=== PATIENT | female | born 1970 | race African-American/Black ===

== ENCOUNTER 2016-05-22 19:48 | Emergency (ER) | payer OTHER ==
[2016-05-22 19:59] VITALS: BP 117/45; PULSE 78; TEMP 98.1; BMI 28.3
--- NOTE | 2016-05-22 20:35 | PDOC ---
History of Present Illness - General Chief Complaint: Respiratory Stated Complaint: COUGH Time Seen by Provider: 05/22/16 20:33 History Source: Patient Past History - Past Medical History Allergies/Adverse Reactions: Allergies Allergy/AdvReac Type Severity Reaction Status Date / Time Penicillins Allergy Severe Hives Verified 05/22/16 19:56 egg Allergy Verified 05/22/16 19:56 latex Allergy Verified 05/22/16 19:56 dust Allergy Uncoded 05/22/16 19:56 Home Medications: Ambulatory Orders Albuterol Sulfate Inhaler - [Ventolin HFA Inhaler -] 1 - 2 inh PO Q4H #1 inhaler 10/01/14 Hydrocortisone/Oatmeal/Aloe/E [Hydrocortisone 1% Cream] 28.4 gm TP BID #1 cream..g. 05/03/15 Asthma: Yes - Immunization History Immunization Up to Date: Yes - Psycho/Social/Smoking Cessation Hx Anxiety: No Suicidal Ideation: No Smoking History: Current every day smoker Number of Cigarettes Smoked Daily: 5 Information on smoking cessation initiated: No Hx Alcohol Use: No Drug/Substance Use Hx: No Substance Use Type: None *Physical Exam - Vital Signs Last Vital Signs Temp Pulse Resp BP Pulse Ox 98.1 F 78 20 117/45 99 05/22/16 19:56 05/22/16 19:56 05/22/16 19:56 05/22/16 19:56 05/22/16 19:56 *DC/Admit/Observation/Transfer Diagnosis at time of Disposition: Viral infection - Discharge Dispostion Disposition: HOME Condition at time of disposition: Stable - Patient Instructions Printed Discharge Instructions: DI for Viral Syndrome Additional Instructions: Rest Increase fluids Tylenol/Motrin as needed for pain Return to the ER for severe/persistent/worsening symptoms
== END 2016-05-22 20:38 | disposition home or self-care (01) ==
LOC: JERFT 19:48
DX: B34.9 Viral infection, unspecified (principal); J45.909 Unspecified asthma, uncomplicated; F17.210 Nicotine dependence, cigarettes, uncomplicated
CPT/HCPCS: 99281-25

== ENCOUNTER 2016-06-26 09:24 | Emergency (ER) | payer OTHER ==
[2016-06-26 09:43] VITALS: BMI 28.0
[2016-06-26] MEDS ORDERED: KETOROLAC TROMETHAMINE 60 MG/2 ML VIAL IM ONE (09:58)
[2016-06-26] MEDS ORDERED: PANTOPRAZOLE 20 MG TABLET (FP) PO ONE (09:59)
[2016-06-26] MEDS ORDERED: diazePAM 5 MG TABLET PO ONE (09:59)
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
[2016-06-26] MEDS ORDERED: KETOROLAC TROMETHAMINE 60 MG/2 ML VIAL ONE (10:20)
[2016-06-26] MEDS ORDERED: PANTOPRAZOLE 40 MG TABLET (FP) ONE ×2 (10:20→10:23)
[2016-06-26] MEDS ORDERED: diazePAM 5 MG TABLET ONE (10:21)
[2016-06-26] MEDS ORDERED: OXYCODONE/APAP 5/325MG COMBO TABLET PO ONE (13:40)
[2016-06-26] MEDS ORDERED: OXYCODONE/APAP 5/325MG COMBO TABLET ONE (13:47)
[2016-06-26 16:39] VITALS: BP 104/58; PULSE 61; TEMP 97.7
== END 2016-06-26 16:26 | disposition home or self-care (01) ==
LOC: JER 09:24
PROC: 3E0233Z Introduction of Anti-inflammatory into Muscle, Percutaneous Approach (ICD-10-PCS; principal; 2016-06-26)
DX: M54.42 Lumbago with sciatica, left side (principal); V43.52XA Car driver injured in collision with other type car in traffic accident, initial encounter; Y92.414 Local residential or business street as the place of occurrence of the external cause; Y93.89 Activity, other specified
CPT/HCPCS: 72100-TC; 72131-TC; 84703; 99281-25

== ENCOUNTER 2016-08-04 18:51 | Emergency (ER) | payer OTHER ==
[2016-08-04 18:56] VITALS: BP 105/57; PULSE 58; TEMP 98.5; BMI 32.1
[2016-08-04 19:31] LABS: URINE APPEARANCE CLEAR; URINE BILIRUBIN NEGATIVE (NEGATIVE); URINE BLOOD NEGATIVE (NEGATIVE); URINE COLOR LTYELLOW; URINE GLUCOSE (UA) NEGATIVE (NEGATIVE); URINE KETONE NEGATIVE (NEGATIVE); URINE LEUK ESTERASE NEGATIVE (NEGATIVE); URINE NITRITE NEGATIVE (NEGATIVE); URINE PROTEIN NEGATIVE (NEGATIVE); URINE UROBILINOGEN NEGATIVE E.U./dl (0.2-1.0)
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
== END 2016-08-04 20:11 | disposition home or self-care (01) ==
LOC: JER 18:51
DX: J32.9 Chronic sinusitis, unspecified (principal); G43.909 Migraine, unspecified, not intractable, without status migrainosus; F17.210 Nicotine dependence, cigarettes, uncomplicated
CPT/HCPCS: 81003; 84703; 99281-25

== ENCOUNTER 2016-10-06 11:49 | Inpatient (IN) | payer OTHER ==
[2016-10-06] MEDS ORDERED: MAGNESIUM SULF 50% (8.12 MEQ/2 ML-1 GM VIAL) IVPB ONE (12:07)
[2016-10-06] MEDS ORDERED: methylPREDNISolone NA SUCC 125 MG/2 ML VIAL IVPB ONE (12:07)
[2016-10-06] MEDS ORDERED: ALBUTEROL SO4 2.5/IPRATROPIUM 0.5 INH SOL 3 ML VIAL.NEB. NEB ONE (12:07)
[2016-10-06] MEDS ORDERED: SODIUM CHLORIDE 1,000 ML IV STA ×2 (12:07→14:35)
--- NOTE | 2016-10-06 12:07 | PDOC ---
History of Present Illness - General History Source: Significant Other Exam Limitations: No Limitations - History of Present Illness Initial Comments: 10/06/16 12:09 This is a 46-year-old female, with a history of asthma and migraines, who presents to the ED with shortness of breath that began this morning. Pts states that she had told him that her chest felt and she was going to pass out. Her symptoms are similar to her prior episodes of asthma. She also reports having seasonal allergies. The patient denies any fever, chills, nausea, vomiting, diarrhea, or abdominal pain. Denies any chest pain. <Emily Gregory - Last Filed: 10/06/16 14:37> <Xi Hyde - Last Filed: 10/07/16 09:41> - General Chief Complaint: Shortness of Breath Stated Complaint: SOB, WHEEZING Time Seen by Provider: 10/06/16 12:02 Past History <Emily Gregory - Last Filed: 10/06/16 14:37> - Past Medical History Asthma: Yes - Immunization History Immunization Up to Date: Yes - Psycho/Social/Smoking Cessation Hx Anxiety: No Suicidal Ideation: No Smoking History: Current some day smoker Number of Cigarettes Smoked Daily: 2 Information on smoking cessation initiated: No Hx Alcohol Use: No Drug/Substance Use Hx: No Substance Use Type: None <Xi Hyde - Last Filed: 10/07/16 09:41> - Past Medical History Allergies/Adverse Reactions: Allergies Allergy/AdvReac Type Severity Reaction Status Date / Time Penicillins Allergy Severe Hives Verified 10/06/16 11:59 egg Allergy Verified 10/06/16 11:59 latex Allergy Verified 10/06/16 11:59 dust Allergy Uncoded 10/06/16 11:59 Home Medications: Ambulatory Orders Albuterol Sulfate Inhaler - [Ventolin HFA Inhaler -] 1 - 2 inh PO Q4H #1 inhaler 10/01/14 Review of Systems - Review of Systems Able to Perform ROS?: Yes Comments:: 10/06/16 12:10 GENERAL/CONSTITUTIONAL: No fever or chills. No weakness. HEAD, EYES, EARS, NOSE AND THROAT: No change in vision. No ear pain or discharge. No sore throat. CARDIOVASCULAR: No chest pain. (+)Shortness of breath, wheezing, chest tightness. RESPIRATORY: No cough, wheezing, or hemoptysis. GASTROINTESTINAL: No nausea, vomiting, diarrhea or constipation. GENITOURINARY: No dysuria, frequency, or change in urination. MUSCULOSKELETAL: No joint or muscle swelling or pain. No neck or back pain. SKIN: No rash NEUROLOGIC: No headache, vertigo, loss of consciousness, or change in strength/ sensation. ENDOCRINE: No increased thirst. No abnormal weight change. HEMATOLOGIC/LYMPHATIC: No anemia, easy bleeding, or history of blood clots. ALLERGIC/IMMUNOLOGIC: No hives or skin allergy. <Emily Gregory - Last Filed: 10/06/16 14:37> *Physical Exam - Vital Signs Last Vital Signs Temp Pulse Resp BP Pulse Ox 98.4 F 97 H 18 133/69 92 L 10/06/16 11:55 10/06/16 11:55 10/06/16 11:55 10/06/16 11:55 10/06/16 11:55 <Emily Gregory - Last Filed: 10/06/16 14:37> - Vital Signs Last Vital Signs Temp Pulse Resp BP Pulse Ox 98.4 F 97 H 18 133/69 92 L 10/06/16 11:55 10/06/16 11:55 10/06/16 11:55 10/06/16 11:55 10/06/16 11:55 <Xi Hyde - Last Filed: 10/07/16 09:41> ED Treatment Course - LABORATORY CBC & Chemistry Diagram: 10/06/16 12:13 10/06/16 12:13 <Emily Gregory - Last Filed: 10/06/16 14:37> - LABORATORY CBC & Chemistry Diagram: 10/07/16 06:10 10/06/16 12:13 <Xi yHde - Last Filed: 10/07/16 09:41> Medical Decision Making - Medical Decision Making 10/06/16 14:17 Dr. Gualberto Junior was paged and notified via phone service. 10/06/16 14:37 Dr. Diaz was paged and notified via phone service. <Emily Gregory - Last Filed: 10/06/16 14:37> - Critical Care Time Total Critical Care Time (minutes): 45 Critical Care Statement: The care of this patient involved high complexity decision making to prevent further life threatening deterioration of the patient 's condition and/or to evalute & treat vital organ system(s) failure or risk of failure. - Medical Decision Making 10/06/16 14:32 Patient much better on BiPAP. She was unable to speak on initial evaluation. She is now able to speak full sentences without difficulty. she states that she takes B-agonists, but not on any chronic steroids, either parenteral or inhaled. She has been admitted to ICU in the past. She typically gets exacerbations related to her seasonal allergies. Will admit to Dr. Gualberto Junior. 10/06/16 15:[address] Junior. Patient got out of bed to commode to urinate, then started to feel worse, developed SOB again. Will resume more nebs and give terbutaline. I will upgrade to ICU. 10/06/16 15:59 Pt desatting to 88%. Respiratory at bedside, increased FIO2 to 30%. Patient still with increased work of breathing. Will give epinephrine and cont to monitor. 10/06/16 16:34 Pt significantly improved s/p epinephrine. She is satting 100% on the BiPAP. will cont to monitor. 10/06/16 17:01 I was at bedside to assist patient to commode. With minimal exertion (turning onto her side, moving) she desats to 88. Concerned that there may be another underlying process aside from the asthma exacerbation. D/w patient and at bedside- will obtain CTA to r/o PE. Endorsed to Dr. Thomas to f/u CTA. Pt still awaiting bed in ICU. <Xi Hyde - Last Filed: 10/07/16 09:41> *DC/Admit/Observation/Transfer - Attestations Scribe Attestion: 10/06/16 12:11 Documentation prepared by Emily Gregory, acting as medical center manager for Xi Hyde MD. <Emily Gregory - Last Filed: 10/06/16 14:37> - Discharge Dispostion Admit: Yes <Xi Hyde - Last Filed: 10/07/16 09:41> Diagnosis at time of Disposition: Asthma Qualifiers: Asthma severity: unspecified severity Asthma complication type: with acute exacerbation Qualified Code(s): J45.901 - Unspecified asthma with (acute) exacerbation - Discharge Dispostion Condition at time of disposition: Guarded
[2016-10-06] MEDS ORDERED: methylPREDNISolone NA SUCC 125 MG/2 ML VIAL ONE (12:11)
[2016-10-06] MEDS ORDERED: MAGNESIUM SULF 50% (8.12 MEQ/2 ML-1 GM VIAL) ONE (12:11)
[2016-10-06] MEDS: ALBUTEROL SO4 2.5/IPRATROPIUM 0.5 INH SOL 3 ML VIAL.NEB. NEB SCH ×3 (12:17→12:46)
[2016-10-06 12:26] LABS: BASOPHIL 0.3 % (0-2.0); MCH 30.6 pg (25.7-33.7); MCHC 33.4 g/dl (32.0-36.0); MEAN CELL VOLUME 91.5 fl (80-96); MEAN PLT VOLUME 7.8 fl (7.5-11.1); NEUTROPHILS 68.5 % (42.8-82.8); PLATELET COUNT 255 K/MM3 (134-434); RDW 13.4 % (11.6-15.6); WHITE BLOOD COUNT 7.6 K/mm3 (4.0-10.0)
[2016-10-06] MEDS ORDERED: ALBUTEROL SO4 0.083% IH SOL 2.5 MG/3 ML VIAL.NEB. NEB ONE ×5 (12:52→22:47)
[2016-10-06 13:12] LABS: ALBUMIN 3.4 g/dl (3.4-5.0); ALK PHOS 93 U/L (45-117); ANION GAP 9 (8-16); BILIRUBIN,TOTAL 0.3 mg/dL (0.2-1.0); CALCIUM 8.9 mg/dL (8.5-10.1); CO2 25 mmol/L (21-32); COCKROFT - GAULT 100.6655; CREATININE 0.8 mg/dL (0.55-1.02); GLUCOSE,RANDOM 111 mg/dL (74-106); SGOT/AST 15 U/L (15-37); SGPT/ALT 15 U/L (12-78)
[2016-10-06] MEDS ORDERED: TERBUTALINE SULFATE 1 MG/1 ML VIAL SQ ONE ×2 (15:15→15:17)
[2016-10-06] MEDS ORDERED: EPINEPHrine 1:1,000 0.3 MG/0.3 ML SYR IM ONE (15:59)
[2016-10-06] MEDS ORDERED: EPINEPHrine/PF 1 MG/1 ML (1:1,000) AMPULE ONE (16:00)
[2016-10-06] MEDS: ALBUTEROL SO4 0.083% IH SOL 2.5 MG/3 ML VIAL.NEB. NEB SCH ×4 (16:05→18:14)
[2016-10-06] MEDS ORDERED: ACETAMINOPHEN 325 MG TABLET (FP) PO PRN (16:35)
[2016-10-06 17:38] LABS: ALLENS TEST POSITIVE; ART PUNCT SITE RIGHT RADIAL; ARTERIAL BLD GAS O2 SATURATION 89.4 % (90-98.9); ARTERIAL BLOOD GAS BASE EXCESS -3.9 meq/l (-2-2); ARTERIAL BLOOD GAS HCO3 20.3 meq/L (22-26); ARTERIAL BLOOD GAS pH 7.37 (7.35-7.45); LPM/O2% 30%; PT. ON O2? YES
[2016-10-06 17:39] LABS: TYPE OF O2 BIPAP IPAP10 EPAP 5; VENT RATE 8
[2016-10-06 17:40] LABS: ARTERIAL BLOOD GAS PO2 60.3 mmHg (80-100)
[2016-10-06] MEDS ORDERED: AZITHROMYCIN IVPB 250 ML IVPB ONE (17:41)
[2016-10-06] MEDS: AZITHROMYCIN IVPB 250 ML IVPB SCH (17:46)
[2016-10-06 19:12] VITALS: BMI 27.4
[2016-10-06] MEDS ORDERED: LEVOFLOXACIN 750 MG IVPB 150 ML IVPB ONE ×2 (19:28→19:32)
[2016-10-06] MEDS: methylPREDNISolone NA SUCC 40 MG/1 ML VIAL IVPB SCH (20:22)
[2016-10-06] MEDS: ALBUTEROL SO4 0.083% IH SOL 2.5 MG/3 ML VIAL.NEB. NEB PRN (20:22)
[2016-10-06] MEDS ORDERED: CHLORHEXIDINE GLUCONATE 4% CLEANSER FOR DECOLONIZATION TP SCH (22:00)
[2016-10-06] MEDS ORDERED: MUPIROCIN 2% TOPICAL OINTMENT FOR DECOLONIZATION NS SCH (22:00)
[2016-10-06] MEDS ORDERED: ACETAMINOPHEN INJECTION 100 ML IVPB ONE (22:37)
[2016-10-06] MEDS: ACETAMINOPHEN 1000 MG/100 ML VIAL (NON FORMULARY) IVPB PRN (23:40)
[2016-10-07] MEDS: ALBUTEROL SO4 0.083% IH SOL 2.5 MG/3 ML VIAL.NEB. NEB PRN ×3 (01:45→15:51)
[2016-10-07] MEDS: methylPREDNISolone NA SUCC 40 MG/1 ML VIAL IVPB SCH ×4 (03:01→21:23)
[2016-10-07] MEDS ORDERED: methylPREDNISolone NA SUCC 125 MG/2 ML VIAL ONE ×3 (03:05→16:43)
[2016-10-07 07:15] LABS: BASOPHIL 0.1 % (0-2.0); MCH 30.8 pg (25.7-33.7); MCHC 33.5 g/dl (32.0-36.0); MEAN PLT VOLUME 8.3 fl (7.5-11.1); NEUTROPHILS 92.4 % (42.8-82.8); PLATELET COUNT 261 K/MM3 (134-434); WHITE BLOOD COUNT 15.8 K/mm3 (4.0-10.0)
[2016-10-07] MEDS ORDERED: ALBUTEROL SO4 0.083% IH SOL 2.5 MG/3 ML VIAL.NEB. NEB ONE ×2 (09:49→15:49)
[2016-10-07] MEDS ORDERED: PANTOPRAZOLE 40 MG TABLET (FP) ONE (09:49)
[2016-10-07] MEDS ORDERED: ENOXAPARIN NA (PORCINE) 40 MG/0.4 ML DISP.SYRIN SQ ONE ×2 (09:50)
[2016-10-07] MEDS ORDERED: AZITHROMYCIN IVPB 250 ML IVPB ONE (09:50)
[2016-10-07] MEDS: AZITHROMYCIN IVPB 250 ML IVPB SCH (09:53)
[2016-10-07] MEDS: ENOXAPARIN NA (PORCINE) 40 MG/0.4 ML DISP.SYRIN SQ SCH (09:54)
[2016-10-07] MEDS: PANTOPRAZOLE 20 MG TABLET (FP) PO SCH (09:54)
--- NOTE | 2016-10-07 10:46 | HP ---
Admitting History and Physical - Primary Care Physician PCP: Zachary Walden - Admission Chief Complaint: sob History of Present Illness: This is a 46-year-old female, with a history of asthma and migraines, who presents to the ED with shortness of breath that began this morning. Pts states that she had told him that her chest felt and she was going to pass out. Her symptoms are similar to her prior episodes of asthma. She also reports having seasonal allergies. The patient denies any fever, chills, nausea, vomiting, diarrhea, or abdominal pain. Denies any chest pain. pt got worsened in er-- admitted under icu care for impending respiratory failure ct =ve for PE PT GIVEN STEROIDS/ EPI/ MAG Case was discussed with er puysician last night Pt seen/ examined in er today feel better complains of back pain-- chronic for few months off and on on further questioning admits smokes-- 3-4 cig/ day no fever/ chills no u/ b trouble no headche/ dizziness no abd pain History Source: Patient Limitations to Obtaining History: No Limitations - Past Medical History Pulmonary: Yes: Asthma, Bronchitis ...LMP Comment: MENOPAUSAL SINCE "AGE 27" ...: No - Smoking History Smoking history: Current some day smoker Aproximately how many cigarettes per day: 2 - Alcohol/Substance Use Hx Alcohol Use: No Home Medications - Allergies Allergies/Adverse Reactions: Allergies Allergy/AdvReac Type Severity Reaction Status Date / Time Penicillins Allergy Severe Hives Verified 10/06/16 11:59 egg Allergy Verified 10/06/16 11:59 latex Allergy Verified 10/06/16 11:59 dust Allergy Uncoded 10/06/16 11:59 - Home Medications Home Medications: Ambulatory Orders Albuterol Sulfate Inhaler - [Ventolin HFA Inhaler -] 1 - 2 inh PO Q4H #1 inhaler 10/01/14 Family Disease History - Family Disease History Family History: Unremarkable Review of Systems Unable to obtain ROS, reason: see [place] - Review of Systems Constitutional: reports: No Symptoms Eyes: reports: No Symptoms HENT: reports: No Symptoms Neck: reports: No Symptoms Cardiovascular: reports: No Symptoms Respiratory: reports: SOB Gastrointestinal: reports: No Symptoms Genitourinary: reports: No Symptoms Musculoskeletal: reports: Back Pain Neurological: reports: No Symptoms Endocrine: reports: No Symptoms Hematology/Lymphatic: reports: No Symptoms Psychiatric: reports: No Symptoms Physical Examination Vital Signs: Vital Signs Temperature 98.2 F 10/07/16 09:32 Pulse Rate 90 10/07/16 09:32 Respiratory Rate 18 10/07/16 09:32 Blood Pressure 124/72 10/07/16 09:32 O2 Sat by Pulse Oximetry (%) 99 10/07/16 09:32 Constitutional: Yes: No Distress, Calm Eyes: Yes: Conjunctiva Clear HENT: Yes: WNL Neck: Yes: Tenderness Cardiovascular: Yes: Regular Rate and Rhythm Respiratory: Yes: Wheezes Gastrointestinal: Yes: Soft Edema: No Labs: CBC, BMP 10/07/16 06:10 Imaging - Results Chest X-ray: Report Reviewed Cat Scan: Report Reviewed Problem List - Problems (1) Asthma Code(s): J45.909 - UNSPECIFIED ASTHMA, UNCOMPLICATED Qualifiers: Asthma severity: unspecified severity Asthma complication type: with acute exacerbation Qualified Code(s): J45.901 - Unspecified asthma with ( acute) exacerbation (2) Smoker Code(s): F17.200 - NICOTINE DEPENDENCE, UNSPECIFIED, UNCOMPLICATED Assessment/Plan better downgrade to floor steroids abx nebulizer treatment nsaid for pain smoking cessation counselling. discussed with icu attending will follow discussed with nursing staff also cc time 40 min
[2016-10-07] MEDS: NICOTINE 7 MG/24 HOURS TOPICAL PATCH TD SCH (11:43)
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
[2016-10-07] MEDS ORDERED: ACETAMINOPHEN INJECTION 100 ML IVPB ONE (15:43)
[2016-10-07] MEDS: ACETAMINOPHEN 1000 MG/100 ML VIAL (NON FORMULARY) IVPB PRN (15:52)
[2016-10-07] MEDS: FLUTICASONE PROP 0.05% 16 GM NASAL SPRAY NS SCH (16:42)
[2016-10-07] MEDS: ALBUTEROL SO4 2.5/IPRATROPIUM 0.5 INH SOL 3 ML VIAL.NEB. NEB SCH ×2 (19:23→23:42)
[2016-10-07] MEDS: MONTELUKAST NA 10 MG TABLET PO SCH (21:23)
[2016-10-08] MEDS: methylPREDNISolone NA SUCC 40 MG/1 ML VIAL IVPB SCH ×4 (02:50→21:51)
[2016-10-08] MEDS: ALBUTEROL SO4 2.5/IPRATROPIUM 0.5 INH SOL 3 ML VIAL.NEB. NEB SCH ×3 (06:37→18:15)
[2016-10-08] MEDS ORDERED: PT OWN MED DRAWER 7, Y5N ONE (09:06)
[2016-10-08] MEDS: NICOTINE 7 MG/24 HOURS TOPICAL PATCH TD SCH (09:12)
[2016-10-08] MEDS: PANTOPRAZOLE 20 MG TABLET (FP) PO SCH (09:12)
[2016-10-08] MEDS: ENOXAPARIN NA (PORCINE) 40 MG/0.4 ML DISP.SYRIN SQ SCH (09:13)
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
--- NOTE | 2016-10-08 10:00 | EKG ---
Test Reason : Blood Pressure : / mmHG Vent. Rate : 114 BPM Atrial Rate : 114 BPM P-R Int : 166 ms QRS Dur : 076 ms QT Int : 346 ms P-R-T Axes : 070 072 036 degrees QTc Int : 476 ms SINUS TACHYCARDIA ABNORMAL ECG WHEN COMPARED WITH ECG OF 03-MAY-2015 22:05, VENT. RATE HAS INCREASED BY 53 BPM NONSPECIFIC T WAVE ABNORMALITY IS NOW PRESENT Confirmed by JOSE DONALD, JAYCOB ([id number]) on 10/08/2016 9:59:50 AM Referred By: Confirmed By:JAYCOB GARCIA MD
[2016-10-08] MEDS: AZITHROMYCIN IVPB 250 ML IVPB SCH (10:23)
--- NOTE | 2016-10-08 14:19 | PN ---
Progress Note (short form) - Note Progress Note: pt seen/ examined. siter at bedside feels better pulmonary f/u noted Vital Signs Temp 97.3 F L 10/08/16 09:00 Pulse 88 10/08/16 09:00 Resp 20 10/08/16 09:00 BP 119/66 10/08/16 09:00 Pulse Ox 99 10/07/16 21:00 Intake & Output 10/07/16 10/08/16 10/08/16 23:59 11:59 23:59 Intake Total 50 50 Balance 50 50 Intake: IVPB 50 50 Other: Voiding Method Toilet Toilet # Unmeasured Voids Void 1 1 Active Medications Acetaminophen (Tylenol -) 650 mg PO Q4H PRN PRN Reason: FEVER OR PAIN Acetaminophen (Ofirmev Injection -) 1,000 mg IVPB Q8H PRN PRN Reason: BACK PAIN Last Admin: 10/07/16 15:52 Dose: 1,000 mg Albuterol Sulfate (Ventolin 0.083% Nebulizer Soln -) 1 amp NEB Q4H PRN PRN Reason: SHORT OF BREATH/WHEEZING Last Admin: 10/07/16 15:51 Dose: 1 amp Albuterol/Ipratropium (Duoneb -) 1 amp NEB QIDR [facility] Last Admin: 10/08/16 11:30 Dose: 1 amp Chlorhexidine Gluconate (Hibiclens For Decolonization -) 1 applic TP [facility] Enoxaparin Sodium (Lovenox -) 40 mg SQ DAILY [facility] Last Admin: 10/08/16 09:13 Dose: 40 mg Fluticasone Propionate (Flonase -) 2 spray NS DAILY [facility] Last Admin: 10/07/16 16:42 Dose: Not Given Azithromycin (Zithromax 500mg Ivpb (Pre-Docked)) 250 mls @ 250 mls/hr IVPB DAILY [facility] Last Admin: 10/08/16 10:23 Dose: 250 mls/hr Methylprednisolone Sodium Succinate (Solu-Medrol -) 60 mg IVPB Q6H-IV [facility] Last Admin: 10/08/16 09:12 Dose: 60 mg Montelukast Sodium (Singulair -) 10 mg PO [facility] Last Admin: 10/07/16 21:23 Dose: 10 mg Mupirocin (Bactroban Ointment (For Decolonization) -) 1 applic NS BID [facility] Stop: 10/11/16 21:59 Nicotine (Nicoderm Patch -) 7 mg TD DAILY [facility] Last Admin: 10/08/16 09:12 Dose: 7 mg Pantoprazole Sodium (Protonix -) 20 mg PO DAILY [facility] Last Admin: 10/08/16 09:12 Dose: 20 mg CBC, BMP 10/07/16 06:10 10/06/16 12:13 Physical Examination Constitutional: Yes: No Distress, Calm Eyes: Yes: Conjunctiva Clear HENT: Yes: WNL Neck: Yes: Tenderness Cardiovascular: Yes: Regular Rate and Rhythm Respiratory: Yes: Wheezes-- decreased Gastrointestinal: Yes: Soft Edema: No Imaging - Results Chest X-ray: Report Reviewed Cat Scan: Report Reviewed Problem List - Problems (1) Asthma Code(s): J45.909 - UNSPECIFIED ASTHMA, UNCOMPLICATED Qualifiers: Asthma severity: unspecified severity Asthma complication type: with acute exacerbation Qualified Code(s): J45.901 - Unspecified asthma with ( acute) exacerbation (2) Smoker Code(s): F17.200 - NICOTINE DEPENDENCE, UNSPECIFIED, UNCOMPLICATED Assessment/Plan better steroids-- taper slowly abx nebulizer treatment nsaid for pain smoking cessation counselling provided will follow discussed with nursing staff also Problem List - Problems (1) Asthma Code(s): J45.909 - UNSPECIFIED ASTHMA, UNCOMPLICATED Qualifiers: Asthma severity: unspecified severity Asthma complication type: with acute exacerbation Qualified Code(s): J45.901 - Unspecified asthma with ( acute) exacerbation (2) Smoker Code(s): F17.200 - NICOTINE DEPENDENCE, UNSPECIFIED, UNCOMPLICATED
[2016-10-08] MEDS ORDERED: POTASSIUM CHLORIDE TABS 20 MEQ TABLET.ER (FP) PO ONE (14:46)
[2016-10-08] MEDS: FLUTICASONE PROP 0.05% 16 GM NASAL SPRAY NS SCH (15:00)
[2016-10-08] MEDS: MONTELUKAST NA 10 MG TABLET PO SCH (21:51)
[2016-10-09] MEDS: ALBUTEROL SO4 2.5/IPRATROPIUM 0.5 INH SOL 3 ML VIAL.NEB. NEB SCH ×5 (06:15→22:02)
[2016-10-09] MEDS: methylPREDNISolone NA SUCC 40 MG/1 ML VIAL IVPB SCH ×3 (07:44→17:07)
[2016-10-09] MEDS ORDERED: PT OWN MED DRAWER 7, Y5N ONE (09:02)
[2016-10-09] MEDS: ENOXAPARIN NA (PORCINE) 40 MG/0.4 ML DISP.SYRIN SQ SCH (09:21)
[2016-10-09] MEDS: NICOTINE 7 MG/24 HOURS TOPICAL PATCH TD SCH (09:21)
[2016-10-09] MEDS: PANTOPRAZOLE 20 MG TABLET (FP) PO SCH (09:22)
[2016-10-09] MEDS: FLUTICASONE PROP 0.05% 16 GM NASAL SPRAY NS SCH (09:22)
--- NOTE | 2016-10-09 10:26 | PN ---
Progress Note, Physician Chief Complaint: events noted admitted for asthma exacerbation on solumedrol feels tight - Current Medication List Current Medications: Active Medications Acetaminophen (Tylenol -) 650 mg PO Q4H PRN PRN Reason: FEVER OR PAIN Acetaminophen (Ofirmev Injection -) 1,000 mg IVPB Q8H PRN PRN Reason: BACK PAIN Last Admin: 10/07/16 15:52 Dose: 1,000 mg Albuterol Sulfate (Ventolin 0.083% Nebulizer Soln -) 1 amp NEB Q4H PRN PRN Reason: SHORT OF BREATH/WHEEZING Last Admin: 10/07/16 15:51 Dose: 1 amp Albuterol/Ipratropium (Duoneb -) 1 amp NEB QIDR [facility] Last Admin: 10/09/16 06:15 Dose: 1 amp Enoxaparin Sodium (Lovenox -) 40 mg SQ DAILY [facility] Last Admin: 10/09/16 09:21 Dose: 40 mg Fluticasone Propionate (Flonase -) 2 spray NS DAILY [facility] Last Admin: 10/09/16 09:22 Dose: 2 sprays Azithromycin (Zithromax 500mg Ivpb (Pre-Docked)) 250 mls @ 250 mls/hr IVPB DAILY [facility] Last Admin: 10/08/16 10:23 Dose: 250 mls/hr Methylprednisolone Sodium Succinate (Solu-Medrol -) 60 mg IVPB Q6H-IV [facility] Last Admin: 10/09/16 09:21 Dose: 60 mg Montelukast Sodium (Singulair -) 10 mg PO HS [facility] Last Admin: 10/08/16 21:51 Dose: 10 mg Nicotine (Nicoderm Patch -) 7 mg TD DAILY [facility] Last Admin: 10/09/16 09:21 Dose: 7 mg Pantoprazole Sodium (Protonix -) 20 mg PO DAILY [facility] Last Admin: 10/09/16 09:22 Dose: 20 mg - Objective Vital Signs: Vital Signs Temperature 97.4 F L 10/09/16 06:32 Pulse Rate 59 L 10/09/16 06:32 Respiratory Rate 20 10/09/16 06:32 Blood Pressure 132/78 10/09/16 06:32 O2 Sat by Pulse Oximetry (%) 99 10/07/16 21:00 Constitutional: Yes: No Distress Cardiovascular: Yes: Regular Rate and Rhythm Respiratory: Yes: Rhonchi Gastrointestinal: Yes: Normal Bowel Sounds, Soft. No: Distention, Tenderness Edema: No Psychiatric: Yes: Alert, Oriented Labs: CBC, BMP 10/07/16 06:10 Problem List - Problems (1) Asthma Code(s): J45.909 - UNSPECIFIED ASTHMA, UNCOMPLICATED Qualifiers: Asthma severity: unspecified severity Asthma complication type: with acute exacerbation Qualified Code(s): J45.901 - Unspecified asthma with ( acute) exacerbation (2) Smoker Code(s): F17.200 - NICOTINE DEPENDENCE, UNSPECIFIED, UNCOMPLICATED (3) Pneumonia Code(s): J18.9 - PNEUMONIA, UNSPECIFIED ORGANISM Qualifiers: Laterality: left Lung location: lower lobe of lung Assessment/Plan PLAN On Solumedrol-keep at current dose nebs scheduled Tylenol as needed for pain nebs and antibiotics pt will need to repeat CT chest in 2 months for left lobe opacity continue with meds OOB smoking cessation -- Nicotine patch DVT prophylaxis-- Lovenox
[2016-10-09] MEDS: AZITHROMYCIN IVPB 250 ML IVPB SCH (10:58)
[2016-10-09] MEDS ORDERED: guaiFENesin/CODEINE 10 ML UNIT-DOSE CUPS PO PRN (11:58)
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
[2016-10-09] MEDS ORDERED: LEVOFLOXACIN 500 MG TABLET (FP) PO SCH (12:30)
[2016-10-09] MEDS: MONTELUKAST NA 10 MG TABLET PO SCH (21:28)
[2016-10-10] MEDS: methylPREDNISolone NA SUCC 40 MG/1 ML VIAL IVPB SCH ×3 (02:24→18:15)
[2016-10-10] MEDS: LEVOFLOXACIN 500 MG TABLET (FP) PO SCH (05:58)
[2016-10-10] MEDS: ALBUTEROL SO4 2.5/IPRATROPIUM 0.5 INH SOL 3 ML VIAL.NEB. NEB SCH ×4 (06:00→22:35)
[2016-10-10 07:17] LABS: BASOPHIL 0.3 % (0-2.0); EOSINOPHIL 0.1 % (0-4.5); MCH 30.9 pg (25.7-33.7); MCHC 33.4 g/dl (32.0-36.0); MEAN CELL VOLUME 92.6 fl (80-96); MEAN PLT VOLUME 8.7 fl (7.5-11.1); NEUTROPHILS 87.2 % (42.8-82.8); PLATELET COUNT 218 K/MM3 (134-434); RDW 13.5 % (11.6-15.6); WHITE BLOOD COUNT 11.7 K/mm3 (4.0-10.0)
[2016-10-10 07:46] LABS: ALBUMIN 2.9 g/dl (3.4-5.0); ANION GAP 10 (8-16); BILIRUBIN,TOTAL 0.4 mg/dL (0.2-1.0); CALCIUM 8.9 mg/dL (8.5-10.1); CO2 28 mmol/L (21-32); COCKROFT - GAULT 89.4795; CREATININE 0.9 mg/dL (0.55-1.02); GLUCOSE,RANDOM 141 mg/dL (74-106); SGOT/AST 12 U/L (15-37); SGPT/ALT 17 U/L (12-78); TOT PROT 6.6 g/dl (6.4-8.2)
[2016-10-10 07:47] LABS: ALK PHOS 69 U/L (45-117)
--- NOTE | 2016-10-10 09:57 | PN ---
Progress Note, Physician Chief Complaint: Feels better No chest tightness Decreased SOB does not use o2 now - Current Medication List Current Medications: Active Medications Acetaminophen (Tylenol -) 650 mg PO Q4H PRN PRN Reason: FEVER OR PAIN Acetaminophen (Ofirmev Injection -) 1,000 mg IVPB Q8H PRN PRN Reason: BACK PAIN Last Admin: 10/07/16 15:52 Dose: 1,000 mg Albuterol/Ipratropium (Duoneb -) 1 amp NEB Q4HWA [facility] Last Admin: 10/10/16 06:00 Dose: 1 amp Enoxaparin Sodium (Lovenox -) 40 mg SQ DAILY [facility] Last Admin: 10/09/16 09:21 Dose: 40 mg Fluticasone Propionate (Flonase -) 2 spray NS DAILY [facility] Last Admin: 10/09/16 09:22 Dose: 2 sprays Guaifenesin/Codeine Phosphate (Robitussin Ac -) 10 ml PO Q8H PRN PRN Reason: COUGH Last Admin: 10/09/16 12:47 Dose: 10 ml Levofloxacin (Levaquin -) 500 mg PO DAILY@0600 [facility] Last Admin: 10/10/16 05:58 Dose: 500 mg Methylprednisolone Sodium Succinate (Solu-Medrol -) 60 mg IVPB Q8H-IV [facility] Last Admin: 10/10/16 02:24 Dose: 60 mg Montelukast Sodium (Singulair -) 10 mg PO HS [facility] Last Admin: 10/09/16 21:28 Dose: 10 mg Nicotine (Nicoderm Patch -) 7 mg TD DAILY [facility] Last Admin: 10/09/16 09:21 Dose: 7 mg Pantoprazole Sodium (Protonix -) 20 mg PO DAILY [facility] Last Admin: 10/09/16 09:22 Dose: 20 mg - Objective Vital Signs: Vital Signs Temperature 98.4 F 10/10/16 06:34 Pulse Rate 62 10/10/16 06:34 Respiratory Rate 20 10/10/16 06:34 Blood Pressure 135/77 10/10/16 06:34 O2 Sat by Pulse Oximetry (%) 96 10/09/16 21:00 Constitutional: Yes: No Distress, Calm Cardiovascular: Yes: Regular Rate and Rhythm Respiratory: Yes: Diminished, Rhonchi (decreased) Gastrointestinal: Yes: Normal Bowel Sounds, Soft, Abdomen, Obese. No: Distention, Tenderness Edema: No Psychiatric: Yes: Alert, Oriented Labs: CBC, BMP 10/10/16 06:30 10/10/16 06:30 Problem List - Problems (1) Asthma Code(s): J45.909 - UNSPECIFIED ASTHMA, UNCOMPLICATED Qualifiers: Asthma severity: unspecified severity Asthma complication type: with acute exacerbation Qualified Code(s): J45.901 - Unspecified asthma with ( acute) exacerbation (2) Smoker Code(s): F17.200 - NICOTINE DEPENDENCE, UNSPECIFIED, UNCOMPLICATED (3) Pneumonia Code(s): J18.9 - PNEUMONIA, UNSPECIFIED ORGANISM Qualifiers: Laterality: left Lung location: lower lobe of lung Assessment/Plan PLAN On Solumedrol-taper nebs scheduled Tylenol as needed for pain nebs and antibiotics pt will need to repeat CT chest in 2 months for left lobe opacity continue with meds incentive spirometry Peak flow measurement OOB smoking cessation -- Nicotine patch DVT prophylaxis-- Lovenox possible dc on Saturday
[2016-10-10] MEDS: PANTOPRAZOLE 20 MG TABLET (FP) PO SCH (10:01)
[2016-10-10] MEDS: NICOTINE 7 MG/24 HOURS TOPICAL PATCH TD SCH (10:01)
[2016-10-10] MEDS: FLUTICASONE PROP 0.05% 16 GM NASAL SPRAY NS SCH (10:06)
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
[2016-10-10] MEDS: ENOXAPARIN NA (PORCINE) 40 MG/0.4 ML DISP.SYRIN SQ SCH (14:29)
[2016-10-10] MEDS ORDERED: PT OWN MED DRAWER 7, Y5N ONE (21:08)
[2016-10-10] MEDS: MONTELUKAST NA 10 MG TABLET PO SCH (21:43)
[2016-10-11] MEDS: methylPREDNISolone NA SUCC 40 MG/1 ML VIAL IVPB SCH ×3 (01:44→21:30)
[2016-10-11] MEDS: LEVOFLOXACIN 500 MG TABLET (FP) PO SCH (06:20)
[2016-10-11] MEDS: ALBUTEROL SO4 2.5/IPRATROPIUM 0.5 INH SOL 3 ML VIAL.NEB. NEB SCH ×5 (06:47→22:19)
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
[2016-10-11] MEDS: NICOTINE 7 MG/24 HOURS TOPICAL PATCH TD SCH (11:23)
[2016-10-11] MEDS: PANTOPRAZOLE 20 MG TABLET (FP) PO SCH (11:23)
[2016-10-11] MEDS: ENOXAPARIN NA (PORCINE) 40 MG/0.4 ML DISP.SYRIN SQ SCH (11:23)
--- NOTE | 2016-10-11 12:21 | PN ---
Progress Note, Physician Chief Complaint: Feeling better No SOB - Current Medication List Current Medications: Active Medications Acetaminophen (Tylenol -) 650 mg PO Q4H PRN PRN Reason: FEVER OR PAIN Acetaminophen (Ofirmev Injection -) 1,000 mg IVPB Q8H PRN PRN Reason: BACK PAIN Last Admin: 10/07/16 15:52 Dose: 1,000 mg Albuterol/Ipratropium (Duoneb -) 1 amp NEB Q4HWA [facility] Last Admin: 10/11/16 09:52 Dose: 1 amp Enoxaparin Sodium (Lovenox -) 40 mg SQ DAILY [facility] Last Admin: 10/11/16 11:23 Dose: 40 mg Fluticasone Propionate (Flonase -) 2 spray NS DAILY [facility] Last Admin: 10/10/16 10:06 Dose: 2 sprays Guaifenesin/Codeine Phosphate (Robitussin Ac -) 10 ml PO Q8H PRN PRN Reason: COUGH Last Admin: 10/09/16 12:47 Dose: 10 ml Levofloxacin (Levaquin -) 500 mg PO DAILY@0600 [facility] Last Admin: 10/11/16 06:20 Dose: 500 mg Methylprednisolone Sodium Succinate (Solu-Medrol -) 40 mg IVPB BID [facility] Last Admin: 10/11/16 11:23 Dose: 40 mg Montelukast Sodium (Singulair -) 10 mg PO HS [facility] Last Admin: 10/10/16 21:43 Dose: 10 mg Nicotine (Nicoderm Patch -) 7 mg TD DAILY [facility] Last Admin: 10/11/16 11:23 Dose: 7 mg Pantoprazole Sodium (Protonix -) 20 mg PO DAILY [facility] Last Admin: 10/11/16 11:23 Dose: 20 mg - Objective Vital Signs: Vital Signs Temperature 98.5 F 10/11/16 06:05 Pulse Rate 53 L 10/11/16 11:52 Respiratory Rate 20 10/11/16 06:05 Blood Pressure 149/82 10/11/16 06:05 O2 Sat by Pulse Oximetry (%) 100 10/11/16 11:52 Constitutional: Yes: No Distress Cardiovascular: Yes: Regular Rate and Rhythm Respiratory: Yes: Diminished, Wheezes Gastrointestinal: Yes: Normal Bowel Sounds, Soft. No: Distention, Tenderness Edema: No Labs: CBC, BMP 10/10/16 06:30 10/10/16 06:30 Problem List - Problems (1) Asthma Code(s): J45.909 - UNSPECIFIED ASTHMA, UNCOMPLICATED Qualifiers: Asthma severity: unspecified severity Asthma complication type: with acute exacerbation Qualified Code(s): J45.901 - Unspecified asthma with ( acute) exacerbation (2) Smoker Code(s): F17.200 - NICOTINE DEPENDENCE, UNSPECIFIED, UNCOMPLICATED (3) Pneumonia Code(s): J18.9 - PNEUMONIA, UNSPECIFIED ORGANISM Qualifiers: Laterality: left Lung location: lower lobe of lung Assessment/Plan PLAN On Solumedrol-taper to BID nebs scheduled Tylenol as needed for pain nebs and antibiotics pt will need to repeat CT chest in 2 months for left lobe opacity continue with meds incentive spirometry Peak flow measurement OOB smoking cessation -- Nicotine patch DVT prophylaxis-- Lovenox possible dc on Saturday on PO prednisone clinically improving
[2016-10-11] MEDS: FLUTICASONE PROP 0.05% 16 GM NASAL SPRAY NS SCH (12:29)
[2016-10-11] MEDS: MONTELUKAST NA 10 MG TABLET PO SCH (21:30)
[2016-10-12] MEDS: LEVOFLOXACIN 500 MG TABLET (FP) PO SCH (06:05)
[2016-10-12] MEDS: ALBUTEROL SO4 2.5/IPRATROPIUM 0.5 INH SOL 3 ML VIAL.NEB. NEB SCH ×5 (06:30→21:58)
[2016-10-12] MEDS ORDERED: PT OWN MED DRAWER 7, Y5N ONE (10:11)
[2016-10-12] MEDS: FLUTICASONE PROP 0.05% 16 GM NASAL SPRAY NS SCH (10:14)
[2016-10-12] MEDS: ENOXAPARIN NA (PORCINE) 40 MG/0.4 ML DISP.SYRIN SQ SCH (10:15)
[2016-10-12] MEDS: NICOTINE 7 MG/24 HOURS TOPICAL PATCH TD SCH (10:15)
[2016-10-12] MEDS: PANTOPRAZOLE 20 MG TABLET (FP) PO SCH (10:16)
[2016-10-12] MEDS: methylPREDNISolone NA SUCC 40 MG/1 ML VIAL IVPB SCH ×2 (10:17→22:50)
--- NOTE | 2016-10-12 10:26 | PN ---
Progress Note (short form) - Note Progress Note: SUBJECTIVE: Patient seen and examined. Chart reviewed. Feels better but still feels tightness. OBJECTIVE: Vital Signs 10/12/16 10/12/16 10/12/16 06:00 09:02 11:05 Temperature 97.5 F L 98 F Pulse Rate 51 L 54 L 55 L Respiratory 18 20 Rate Blood Pressure 119/66 133/74 O2 Sat by Pulse 100 Oximetry (%) Intake & Output 10/11/16 10/12/16 10/12/16 23:59 07:59 15:59 Other: Voiding Method Toilet Toilet # Unmeasured Voids Void 1 1 Bowel Movement No # Bowel Movements 0 Active Medications Acetaminophen (Tylenol -) 650 mg PO Q4H PRN PRN Reason: FEVER OR PAIN Last Admin: 10/11/16 12:28 Dose: 650 mg Acetaminophen (Ofirmev Injection -) 1,000 mg IVPB Q8H PRN PRN Reason: BACK PAIN Last Admin: 10/07/16 15:52 Dose: 1,000 mg Albuterol/Ipratropium (Duoneb -) 1 amp NEB Q4HWA [facility] Last Admin: 10/12/16 09:50 Dose: 1 amp Enoxaparin Sodium (Lovenox -) 40 mg SQ DAILY [facility] Last Admin: 10/12/16 10:15 Dose: 40 mg Fluticasone Propionate (Flonase -) 2 spray NS DAILY [facility] Last Admin: 10/12/16 10:14 Dose: 2 sprays Guaifenesin/Codeine Phosphate (Robitussin Ac -) 10 ml PO Q8H PRN PRN Reason: COUGH Last Admin: 10/09/16 12:47 Dose: 10 ml Levofloxacin (Levaquin -) 500 mg PO DAILY@0600 [facility] Last Admin: 10/12/16 06:05 Dose: 500 mg Methylprednisolone Sodium Succinate (Solu-Medrol -) 20 mg IVPB BID [facility] Montelukast Sodium (Singulair -) 10 mg PO HS [facility] Last Admin: 10/11/16 21:30 Dose: 10 mg Nicotine (Nicoderm Patch -) 7 mg TD DAILY [facility] Last Admin: 10/12/16 10:15 Dose: 7 mg Pantoprazole Sodium (Protonix -) 20 mg PO DAILY [facility] Last Admin: 10/12/16 10:16 Dose: 20 mg CBC, BMP 10/10/16 06:30 10/10/16 06:30 Laboratory Results - last 24 hr 10/11/16 17:38 POC Glucometer 164 Microbiology 10/06/16 17:35 Blood Culture - Final Blood - Peripheral Venous NO GROWTH AFTER 5 DAYS INCUBATION 10/06/16 17:35 Blood Culture - Final Blood - Peripheral Venous NO GROWTH AFTER 5 DAYS INCUBATION 10/11/16 12:05 Gram Stain - Final Sputum - Expectorated PHYSICAL EXAMINATION: Constitutional: Yes: No Distress, Calm Eyes: Yes: Conjunctiva Clear HENT: Yes: WNL Neck: Yes: Tenderness Cardiovascular: Yes: Regular Rate and Rhythm Respiratory: Yes: Scattered Wheezes Gastrointestinal: Yes: Soft. Non-tender Edema: No Problem List - Problems (1) Asthma Code(s): J45.909 - UNSPECIFIED ASTHMA, UNCOMPLICATED Qualifiers: Asthma severity: unspecified severity Asthma complication type: with acute exacerbation Qualified Code(s): J45.901 - Unspecified asthma with ( acute) exacerbation (2) Smoker Code(s): F17.200 - NICOTINE DEPENDENCE, UNSPECIFIED, UNCOMPLICATED ASSESSMENT & PLAN: - Slowly getting better. - Taper steroids. - Continue Nebulizer treatments. - Smoking cessation provided again - If improved, will discharge tomorrow on PO Prednisone. - Patient in agreement. Documentation prepared by Lisa Briceño, acting as a medical technical writer for Gualberto Junior MD <Lisa Briceño - Last Filed: 10/12/16 11:21> Problem List - Problems (1) Asthma Code(s): J45.909 - UNSPECIFIED ASTHMA, UNCOMPLICATED Qualifiers: Asthma severity: unspecified severity Asthma complication type: with acute exacerbation Qualified Code(s): J45.901 - Unspecified asthma with ( acute) exacerbation (2) Smoker Code(s): F17.200 - NICOTINE DEPENDENCE, UNSPECIFIED, UNCOMPLICATED <Gualberto Junior - Last Filed: 10/12/16 10:26>
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
[2016-10-12] MEDS ORDERED: methylPREDNISolone NA SUCC 40 MG/1 ML VIAL IVPB SCH (22:00)
[2016-10-12] MEDS: MONTELUKAST NA 10 MG TABLET PO SCH (22:50)
[2016-10-13] MEDS: LEVOFLOXACIN 500 MG TABLET (FP) PO SCH (05:41)
[2016-10-13] MEDS: ALBUTEROL SO4 2.5/IPRATROPIUM 0.5 INH SOL 3 ML VIAL.NEB. NEB SCH ×3 (07:07→13:50)
[2016-10-13 07:33] VITALS: BP 124/57; PULSE 52; TEMP 98.1
[2016-10-13] MEDS: methylPREDNISolone NA SUCC 40 MG/1 ML VIAL IVPB SCH (10:06)
[2016-10-13] MEDS: ENOXAPARIN NA (PORCINE) 40 MG/0.4 ML DISP.SYRIN SQ SCH (10:07)
[2016-10-13] MEDS: PANTOPRAZOLE 20 MG TABLET (FP) PO SCH (10:07)
[2016-10-13] MEDS ORDERED: PT OWN MED DRAWER 7, Y5N ONE (10:09)
[2016-10-13] MEDS: FLUTICASONE PROP 0.05% 16 GM NASAL SPRAY NS SCH (10:13)
[2016-10-13] MEDS: NICOTINE 7 MG/24 HOURS TOPICAL PATCH TD SCH (10:13)
--- NOTE | 2016-10-13 12:27 | DS ---
Physical Examination Vital Signs: Vital Signs Temperature 98.1 F 10/13/16 06:00 Pulse Rate 52 L 10/13/16 06:00 Respiratory Rate 20 10/13/16 11:56 Blood Pressure 124/57 10/13/16 06:00 O2 Sat by Pulse Oximetry (%) 97 10/13/16 11:56 Constitutional: Yes: No Distress, Calm Cardiovascular: Yes: Regular Rate and Rhythm Respiratory: Yes: Diminished, Wheezes (mild) Gastrointestinal: Yes: Normal Bowel Sounds, Soft, Abdomen, Obese. No: Distention, Tenderness Edema: No Labs: CBC, BMP 10/10/16 06:30 10/10/16 06:30 Discharge Summary Reason For Visit: ASTHMA Current Active Problems Asthma (Acute) Pneumonia (Acute) Smoker (Acute) Hospital Course: Admitted for asthma exacerbation, chest tightness Started on Solumedrol and iv antibiotics seen by Pulmonary Pt clinically better she will need to follow up with repeat CT chest in 2 months to follow on left lobe opacity nebs ordered stable for dc home smoking cessation Follow up in office in 2 weeks Condition: Good - Instructions Referrals: Gualberto Junior MD [Staff Physician] - 2 Weeks Disposition: HOME - Home Medications Comprehensive Discharge Medication List: Ambulatory Orders Albuterol Sulfate Inhaler - [Ventolin HFA Inhaler -] 1 - 2 inh PO Q4H #1 inhaler 10/01/14
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
== END 2016-10-13 15:08 | disposition home or self-care (01) | DRG 141 ==
LOC: JER 11:49 → JERBED 14:30 → J8W 10-07 17:38
PROVIDERS: ADMIT Internal Medicine; ATTEND Internal Medicine
DX: J45.901 Unspecified asthma with (acute) exacerbation (principal); J18.9 Pneumonia, unspecified organism; G43.909 Migraine, unspecified, not intractable, without status migrainosus; F17.210 Nicotine dependence, cigarettes, uncomplicated; R53.1 Weakness
CPT/HCPCS: 36415; 36600; 71010-TC; 71275-TC; 80053; 82803; 83735; 84703; 85025; 85027; 87040; 87070; 87205; 87899; 93005; 93010; 94150; 94640; 94660; 99285-25

== ENCOUNTER 2017-08-06 13:22 | Emergency (ER) | payer OTHER ==
[2017-08-06 13:39] VITALS: TEMP 97.6; BMI 30.4
[2017-08-06] MEDS ORDERED: morphine CARPU-JECT 4 MG/1 ML DISP.SYRIN IVPUSH ONE (14:10)
[2017-08-06] MEDS ORDERED: DEXAMETHASONE SOD PHOSPHATE 20 MG/5 ML VIAL IVPB ONE (14:10)
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
[2017-08-06] MEDS ORDERED: ACETAMINOPHEN 500 MG TABLET (FP) PO ONE (15:03)
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
[2017-08-06] MEDS ORDERED: morphine SULFATE 4 MG/ML VIAL IVPUSH ONE (15:40)
[2017-08-06] MEDS ORDERED: ONDANSETRON 4 MG/2 ML VIAL IVPUSH ONE (15:40)
[2017-08-06] MEDS ORDERED: ACETAMINOPHEN 325 MG TABLET (FP) ONE (15:41)
[2017-08-06] MEDS ORDERED: morphine SULFATE 4 MG/ML VIAL ONE (15:42)
[2017-08-06] MEDS ORDERED: DEXAMETHASONE SOD PHOSPHATE 10 MG/1 ML VIAL ONE (15:42)
[2017-08-06] MEDS ORDERED: ONDANSETRON 4 MG/2 ML VIAL ONE (15:55)
[2017-08-06 16:05] LABS: BASO % 0.6 % (0-2.0); EOS % 10.1 % (0-4.5); HEMATOCRIT 35.8 % (32.4-45.2); HEMOGLOBIN 12.1 GM/dL (10.7-15.3); LYMPH % 41.5 % (8-40); MCHC 33.7 g/dl (32.0-36.0); MEAN PLT VOLUME 8.5 fl (7.5-11.1); MONO % 6.3 % (3.8-10.2); NEUT % 41.5 % (42.8-82.8); RBC 3.89 M/mm3 (3.60-5.2); RDW 13.2 % (11.6-15.6); WHITE BLOOD COUNT 5.8 K/mm3 (4.0-10.0)
[2017-08-06 16:17] LABS: INR 0.97 (0.82-1.09)
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
[2017-08-06 17:23] LABS: CHLORIDE 110 mmol/L (98-107); POTASSIUM 4.1 mmol/L (3.5-5.1); SODIUM 142 mmol/L (136-145)
[2017-08-06 17:48] LABS: ALK PHOS 82 U/L (45-117); ANION GAP 5 (8-16); BLOOD UREA NITROGEN 8 mg/dL (7-18); CO2 27 mmol/L (21-32); CREATININE 0.7 mg/dL (0.55-1.02); GLUCOSE,RANDOM 82 mg/dL (74-106); SGOT/AST 32 U/L (15-37); SGPT/ALT 18 U/L (12-78); TOT PROT 6.1 g/dl (6.4-8.2)
[2017-08-06 18:03] LABS: BILIRUBIN,TOTAL < 0.1 mg/dL (0.2-1.0)
[2017-08-06] MEDS ORDERED: METHOCARBAMOL 750 MG TAB PO ONE (18:28)
[2017-08-06] MEDS ORDERED: METHOCARBAMOL 500 MG TABLET ONE (18:40)
[2017-08-06 20:37] LABS: PLATELET ESTIMATE DECREASED
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
[2017-08-06 21:09] VITALS: BP 115/63; PULSE 63
[2017-08-06] MEDS ORDERED: IBUPROFEN 600 MG TABLET (FP) PO ONE (22:26)
== END 2017-08-06 21:10 | disposition home or self-care (01) ==
LOC: JER 13:22 → JERFT 13:22 → JER 21:10
PROC: 3E033NZ Introduction of Analgesics, Hypnotics, Sedatives into Peripheral Vein, Percutaneous Approach (ICD-10-PCS; principal; 2017-08-06)
PROC: 3E0333Z Introduction of Anti-inflammatory into Peripheral Vein, Percutaneous Approach (ICD-10-PCS; 2017-08-06)
PROC: 3E033GC Introduction of Other Therapeutic Substance into Peripheral Vein, Percutaneous Approach (ICD-10-PCS; 2017-08-06)
PROC: 3E033NZ Introduction of Analgesics, Hypnotics, Sedatives into Peripheral Vein, Percutaneous Approach (ICD-10-PCS; 2017-08-06)
DX: M54.5 Low back pain (principal); M79.605 Pain in left leg; Y93.89 Activity, other specified; Y92.032 Bedroom in apartment as the place of occurrence of the external cause; W18.39XA Other fall on same level, initial encounter
CPT/HCPCS: 36415; 72148-TC; 80053; 84703; 85025; 85610; 99283-25

== ENCOUNTER 2017-09-30 00:04 | Inpatient (IN) | payer OTHER ==
[2017-09-30 01:31] VITALS: BMI 46.5
[2017-09-30] MEDS ORDERED: ALBUTEROL SO4 2.5/IPRATROPIUM 0.5 INH SOL 3 ML VIAL.NEB. NEB ONE ×3 (01:33→08:47)
[2017-09-30] MEDS ORDERED: DEXAMETHASONE SOD PHOSPHATE 10 MG/1 ML VIAL IM ONE (02:02)
--- NOTE | 2017-09-30 02:06 | PDOC ---
History of Present Illness - General Chief Complaint: Asthma Stated Complaint: ASTHMA Time Seen by Provider: 09/30/17 01:58 - History of Present Illness Initial Comments: 47-year-old female with past medical history significant for asthma had a four- day exacerbation unrelieved by home nebulization treatments. She has no other comorbidities. She has been hospitalized but is unsure about prior intubations 09/30/17 02:03 Past History - Past Medical History Allergies/Adverse Reactions: Allergies Allergy/AdvReac Type Severity Reaction Status Date / Time Penicillins Allergy Severe Hives Verified 09/30/17 01:31 egg Allergy Verified 09/30/17 01:31 latex Allergy Verified 09/30/17 01:31 dust Allergy Uncoded 09/30/17 01:31 Home Medications: Ambulatory Orders Montelukast Na [Singulair -] 10 mg PO HS #30 tablet 10/13/16 Albuterol Sulfate Inhaler - [Ventolin Hfa Inhaler -] 1 - 2 inh PO QID PRN Asthma: Yes COPD: No - Immunization History Immunization Up to Date: Yes - Suicide/Smoking/Psychosocial Hx Smoking History: Never smoked Have you smoked in the past 12 months: No Number of Cigarettes Smoked Daily: 2 Information on smoking cessation initiated: No Hx Alcohol Use: No Drug/Substance Use Hx: No Substance Use Type: None Review of Systems - Review of Systems Comments:: GENERAL/CONSTITUTIONAL: [No fever or chills. No weakness. No weight change.] HEAD, EYES, EARS, NOSE AND THROAT: [No change in vision. No ear pain or discharge. No sore throat.] CARDIOVASCULAR: [No chest pain or shortness of breath.] RESPIRATORY: [+ cough, wheezing, no hemoptysis.] GASTROINTESTINAL: [No nausea, vomiting, diarrhea or constipation. No rectal bleeding.] GENITOURINARY: [No dysuria, frequency, or change in urination.] MUSCULOSKELETAL: [No joint or muscle swelling or pain. No neck or back pain.] SKIN AND BREASTS: [No rash or easy bruising.] NEUROLOGIC: [No headache, vertigo, loss of consciousness, or loss of sensation.] PSYCHIATRIC: [No depression or anxiety.] ENDOCRINE: [No increased thirst. No abnormal weight change.] HEMATOLOGIC/LYMPHATIC: [No anemia, easy bleeding, or history of blood clots.] ALLERGIC/IMMUNOLOGIC: [No hives or skin allergy. No latex allergy.] 09/30/17 02:04 *Physical Exam - Vital Signs Last Vital Signs Temp Pulse Resp BP Pulse Ox 97.9 F 75 24 116/70 98 09/30/17 01:27 09/30/17 01:27 09/30/17 01:27 09/30/17 01:27 09/30/17 01:27 - Physical Exam Comments: GENERAL: [The patient is awake, alert, and fully oriented, in no acute distress. ] HEAD: [Normal with no signs of trauma.] EYES: [Pupils equal, round and reactive to light, extraocular movements intact, sclera anicteric, conjunctiva clear.] ENT: [Ears normal, nares patent, oropharynx clear without exudates. Moist mucous membranes.] NECK: [Normal range of motion, supple without lymphadenopathy, JVD, or masses.] LUNGS: Bilateral diffuse wheezing HEART: [Regular rate and rhythm, normal S1 and S2 without murmur, rub or gallop. ] ABDOMEN: [Soft, nontender, normoactive bowel sounds. No guarding, no rebound. No masses.] EXTREMITIES: [Normal range of motion, no edema. No clubbing or cyanosis. No cords, erythema, or tenderness.] NEUROLOGICAL: [Cranial nerves II through XII grossly intact. Normal speech, normal gait.] PSYCH: [Normal mood, normal affect.] SKIN: [Warm, Dry, normal turgor, no rashes or lesions noted.] 09/30/17 02:05 ED Treatment Course - LABORATORY CBC & Chemistry Diagram: 09/30/17 04:00 09/30/17 04:00 - RADIOLOGY Radiology Studies Ordered: Category Date Time Status CHEST - PA [RAD] Stat Radiology 09/30/17 02:01 Ordered - Medications Given in the ED: ED Medications Discontinued Medications Generic Name Dose Route Start Last Admin Trade Name Freq PRN Reason Stop Dose Admin Albuterol/Ipratropium 1 amp 09/30/17 01:33 09/30/17 01:34 Duoneb - NEB 09/30/17 01:34 1 amp NOW ONE Administration Medical Decision Making - Medical Decision Making 09/30/17 03:07 still wheezing after duo/neb x4 labs ordered as well as Mg *DC/Admit/Observation/Transfer Diagnosis at time of Disposition: Asthma - Discharge Dispostion Condition at time of disposition: Fair Decision to Admit order: Yes - Referrals Referrals: Gayatri Bullock MD [Primary Care Provider] - - Patient Instructions - Post Discharge Activity
[2017-09-30] MEDS ORDERED: DEXAMETHASONE SOD PHOSPHATE 10 MG/1 ML VIAL ONE (02:17)
[2017-09-30] MEDS: ALBUTEROL SO4 2.5/IPRATROPIUM 0.5 INH SOL 3 ML VIAL.NEB. NEB SCH ×3 (02:21→04:12)
[2017-09-30] MEDS ORDERED: MAGNESIUM SULF 50% (8.12 MEQ/2 ML-1 GM VIAL) IVPB ONE (03:06)
[2017-09-30] MEDS ORDERED: MAGNESIUM SULF 50% (8.12 MEQ/2 ML-1 GM VIAL) ONE (03:52)
[2017-09-30 04:20] LABS: BASO % 0.4 % (0-2.0); EOS % 5.3 % (0-4.5); HEMATOCRIT 38.5 % (32.4-45.2); HEMOGLOBIN 12.6 GM/dL (10.7-15.3); LYMPH % 18.6 % (8-40); MCH 30.3 pg (25.7-33.7); MCHC 32.8 g/dl (32.0-36.0); MEAN CELL VOLUME 92.3 fl (80-96); MEAN PLT VOLUME 8.4 fl (7.5-11.1); MONO % 2.5 % (3.8-10.2); NEUT % 73.2 % (42.8-82.8); PLATELET COUNT 303 K/MM3 (134-434); RBC 4.17 M/mm3 (3.60-5.2); RDW 13.3 % (11.6-15.6); WHITE BLOOD COUNT 8.5 K/mm3 (4.0-10.0)
[2017-09-30 05:40] LABS: ALBUMIN 3.5 g/dl (3.4-5.0); ALK PHOS 89 U/L (45-117); ANION GAP 8 (8-16); BILIRUBIN,TOTAL 0.2 mg/dL (0.2-1.0); BLOOD UREA NITROGEN 12 mg/dL (7-18); CALCIUM 8.5 mg/dL (8.5-10.1); CHLORIDE 108 mmol/L (98-107); CO2 24 mmol/L (21-32); GLUCOSE,RANDOM 258 mg/dL (74-106); POTASSIUM 3.6 mmol/L (3.5-5.1); SGOT/AST 16 U/L (15-37); SGPT/ALT 16 U/L (12-78); SODIUM 140 mmol/L (136-145)
[2017-09-30] MEDS ORDERED: ALBUTEROL SO4 0.083% IH SOL 2.5 MG/3 ML VIAL.NEB. NEB PRN (05:58)
--- NOTE | 2017-09-30 05:58 | HP ---
CHIEF COMPLAINT: difficulty breathing PCP: Angel Bullock HISTORY OF PRESENT ILLNESS: This is a 47 year old female with a significant past medical history of asthma, no intubations, + NIPPV on last admission 07/2017 who presented to the ED with SOB, wheezing x 4 days not helped with home meds. ER course was notable for: (1) WBC 8.5 (2) given dexamethasone 10mg IM, mag 2gm IV and duoneb x 4 Recent Travel: pt denies PAST MEDICAL HISTORY: asthma PAST SURGICAL HISTORY: gastric bypass 2011 bilat carpal tunnel 2011 Social History: Smokin cig/day Alcohol: occ wine Drugs: pt denies Family History: mother with DM father unk one child, healthy Allergies Penicillins Allergy (Severe, Verified 09/30/17 01:31) Hives egg Allergy (Verified 09/30/17 01:31) latex Allergy (Verified 09/30/17 01:31) dust Allergy (Uncoded 09/30/17 01:31) HOME MEDICATIONS: 3 Medication Instructions Recorded Montelukast Na [Singulair -] 10 mg PO HS #30 tablet 10/13/16 Albuterol Sulfate Inhaler - 1 - 2 inh PO QID PRN 09/30/17 [Ventolin Hfa Inhaler -] REVIEW OF SYSTEMS CONSTITUTIONAL: Absent: fever, chills, diaphoresis, generalized weakness, malaise, loss of appetite, weight change HEENT: Absent: rhinorrhea, nasal congestion, throat pain, throat swelling, difficulty swallowing, mouth swelling, ear pain, eye pain, visual changes CARDIOVASCULAR: Absent: chest pain, syncope, palpitations, irregular heart rate, lightheadedness , peripheral edema RESPIRATORY: Present: shortness of breath, wheezing Absent: cough, dyspnea with exertion, orthopnea, stridor, hemoptysis GASTROINTESTINAL: Absent: abdominal pain, abdominal distension, nausea, vomiting, diarrhea, constipation, melena, hematochezia GENITOURINARY: Absent: dysuria, frequency, urgency, hesitancy, hematuria, flank pain, genital pain MUSCULOSKELETAL: Absent: myalgia, arthralgia, joint swelling, back pain, neck pain SKIN: Absent: rash, itching, pallor HEMATOLOGIC/IMMUNOLOGIC: Absent: easy bleeding, easy bruising, lymphadenopathy, frequent infections ENDOCRINE: Absent: unexplained weight gain, unexplained weight loss, heat intolerance, cold intolerance NEUROLOGIC: Absent: headache, focal weakness or paresthesias, dizziness, unsteady gait, seizure, mental status changes, bladder or bowel incontinence PSYCHIATRIC: Absent: anxiety, depression, suicidal or homicidal ideation, hallucinations. PHYSICAL EXAMINATION Vital Signs - 24 hr 3 09/30/17 09/30/17 01:27 05:25 Temperature 97.9 F Pulse Rate 75 Pulse Rate [ 94 H Left Radial] Respiratory 24 22 Rate Blood Pressure 116/70 Blood Pressure 110/54 [Left Arm] O2 Sat by Pulse 98 94 L Oximetry (%) GENERAL: Awake, alert, and fully oriented, in no acute distress. HEAD: Normal with no signs of trauma. EYES: Pupils equal, round and reactive to light, extraocular movements intact, sclera anicteric, conjunctiva clear. No lid lag. EARS, NOSE, THROAT: Ears normal, nares patent, oropharynx clear without exudates. Moist mucous membranes. NECK: Normal range of motion, supple without lymphadenopathy, JVD, or masses. LUNGS: Breath sounds equal, mild end inspiratory and expiratory wheezing. No crackles. No accessory muscle use. HEART: Regular rate and rhythm, normal S1 and S2 without murmur, rub or gallop. ABDOMEN: Soft, nontender, not distended, normoactive bowel sounds, no guarding, no rebound, no masses. No hepatomegaly or splenomegaly. MUSCULOSKELETAL: Normal range of motion at all joints. No bony deformities or tenderness. No CVA tenderness. UPPER EXTREMITIES: 2+ pulses, warm, well-perfused. No cyanosis. No clubbing. No peripheral edema. LOWER EXTREMITIES: 2+ pulses, warm, well-perfused. No calf tenderness. No peripheral edema. NEUROLOGICAL: Cranial nerves II-XII intact. Normal speech. Normal gait. PSYCHIATRIC: Cooperative. Good eye contact. Appropriate mood and affect. SKIN: Warm, dry, normal turgor, no rashes or lesions noted, normal capillary refill. Laboratory Results - last 24 hr 3 09/30/17 09/30/17 04:00 04:00 WBC 8.5 D RBC 4.17 Hgb 12.6 Hct 38.5 MCV 92.3 MCH 30.3 MCHC 32.8 RDW 13.3 Plt Count 303 D MPV 8.4 Neutrophils % 73.2 D Lymphocytes % 18.6 D Monocytes % 2.5 L Eosinophils % 5.3 H Basophils % 0.4 Sodium Cancelled Potassium Cancelled Chloride Cancelled Carbon Dioxide Cancelled Anion Gap Cancelled BUN Cancelled Creatinine Cancelled Creat Clearance w eGFR Cancelled Random Glucose Cancelled Calcium Cancelled Total Bilirubin Cancelled AST Cancelled ALT Cancelled Alkaline Phosphatase Cancelled Total Protein Cancelled Albumin Cancelled Radiology Reports Chest, PA final read pending, no obvious infiltrates or effusions ASSESSMENT/PLAN: 47yF with PMH asthma presented to the ED with SOB, wheezing x 4 days. Asthma exacerbation - duoneb QID standing with albuterol PRN - given dexamethasone 10mg x1 IM in ed @ 2am, wheezing improved will hold on further steroids for now, may be able to transition to po - Pulmonary consult - after further questioning, pt reports having advair at home but has not been utilizing, advised to restart same upon DC - peak flow daily DVT PPX - deferred, pt fully ambulatory FEN - tolerating po - bmp in am tomorrow if not dc home - regular diet as tolerated Dispo: Pt currently requires further observation for management of her emergent condition. Visit type - Emergency Visit Emergency Visit: Yes ED Registration Date: 09/30/17 Care time: The patient presented to the Emergency Department on the above date and was hospitalized for further evaluation of their emergent condition. - New Patient This patient is new to me today: Yes Date on this admission: 09/30/17 - Critical Care Critical Care patient: No Hospitalist Screening - Colonoscopy Questionnaire Colonoscopy Questionnaire: Colonoscopy Questionnaire - Patient: 50 - 75 years old and never had a screening colonoscopy: No History of colon or rectal polyps, or CA: No History of IBD, Crohn's disease or UC: No History of abdominal radiation therapy as a child: No - Relative: 1 with colon or rectal CA, or polyps at age 60 or younger: No Colon or rectal CA diagnosed at age 45 or younger: No Multiple relatives with colon or rectal CA: No - Outcome: Screening Result: Negative Screen
[2017-09-30] MEDS ORDERED: ALBUTEROL SO4 2.5/IPRATROPIUM 0.5 INH SOL 3 ML VIAL.NEB. NEB SCH (08:00)
--- NOTE | 2017-09-30 11:36 | DS ---
Physical Examination Vital Signs: Vital Signs Temperature 97.9 F 09/30/17 07:24 Pulse Rate 89 09/30/17 07:24 Respiratory Rate 18 09/30/17 07:24 Blood Pressure 120/60 09/30/17 07:24 O2 Sat by Pulse Oximetry (%) 99 09/30/17 07:24 Findings/Remarks: feels well and wants to go home No complaints today Reports feeling much better Constitutional: Yes: No Distress, Calm Neck: Yes: Supple Cardiovascular: Yes: Regular Rate and Rhythm Respiratory: Yes: CTA Bilaterally (Except few scattered rhonchi) Gastrointestinal: Yes: Soft Edema: No Labs: CBC, BMP 09/30/17 04:00 09/30/17 05:07 Discharge Summary Reason For Visit: ASTHMA Current Active Problems Asthma (Acute) Hospital Course: patient admitted for asthma exacerbation Given IV steroid yesterday Much better Will discharge and prednisone patient advised to follow-up with Her PMD this week meds reconcilled Pt in agreement Condition: Fair - Instructions Referrals: Gayatri Bullock MD [Primary Care Provider] - Disposition: HOME - Home Medications Comprehensive Discharge Medication List: Ambulatory Orders Montelukast Na [Singulair -] 10 mg PO HS #30 tablet 10/13/16 Albuterol 0.083% Nebulizer Mere [Ventolin 0.083% Nebulizer Soln -] 1 amp NEB Q4H PRN amp 09/30/17 Albuterol Sulfate Inhaler - [Ventolin HFA Inhaler -] 1 - 2 inh PO QID PRN #1 inhaler 09/30/17 Fluticasone/Salmeterol [Advair 250-50 Diskus] 1 each IH BID #1 blst.w.dev Prednisone 10 mg PO ASDIR 10 Days #30 tablet 09/30/17 Ranitidine HCl [Zantac] 150 mg PO BID #30 tablet 09/30/17
[2017-09-30 11:58] VITALS: BP 132/66; PULSE 73; TEMP 98.2
[2017-09-30] MEDS ORDERED: MONTELUKAST NA 10 MG TABLET PO SCH (22:00)
== END 2017-09-30 11:45 | disposition home or self-care (01) | DRG 141 ==
LOC: JER 00:04 → JERBED 05:07
PROVIDERS: ADMIT Internal Medicine; ATTEND Internal Medicine
DX: J45.901 Unspecified asthma with (acute) exacerbation (principal); Z88.0 Allergy status to penicillin; Z98.84 Bariatric surgery status; F17.210 Nicotine dependence, cigarettes, uncomplicated; Z83.3 Family history of diabetes mellitus
CPT/HCPCS: 36415; 71045-TC-FY; 80053; 83735; 85025; 99284-25; J1100

== ENCOUNTER 2018-02-09 03:07 | Emergency (ER) | payer OTHER ==
--- NOTE | 2018-02-09 03:12 | PDOC ---
History of Present Illness - General Stated Complaint: ASTHMA/CHEST TIGHTNESS Time Seen by Provider: 02/09/18 03:12 History Source: Patient Exam Limitations: No Limitations - History of Present Illness Initial Comments: 02/09/18 03:35 47 year old female with PMH asthma (denies intubations, last admitted for asthma 09/2016) presenting to ED for chest tightness and wheezing x3 days. She admits to productive cough, nausea, vomiting, diarrhea, sore throat, runny nose , body aches, chills. She denies chest pain, palpitations, blood in stool, dysuria. Pt states she took 20 mg of prednisone today for her symptoms without relief. Allergies - PCN, egg, latex Post-menopausal Past History - Past Medical History Allergies/Adverse Reactions: Allergies Allergy/AdvReac Type Severity Reaction Status Date / Time Penicillins Allergy Severe Hives Verified 02/09/18 03:24 egg Allergy Verified 02/09/18 03:24 latex Allergy Verified 02/09/18 03:24 dust Allergy Uncoded 02/09/18 03:24 Home Medications: Ambulatory Orders Montelukast Na [Singulair -] 10 mg PO HS #30 tablet 10/13/16 Albuterol 0.083% Nebulizer Mere [Ventolin 0.083% Nebulizer Soln -] 1 amp NEB Q4H PRN amp 09/30/17 Albuterol Sulfate Inhaler - [Ventolin HFA Inhaler -] 1 - 2 inh PO QID PRN #1 inhaler 09/30/17 Fluticasone/Salmeterol [Advair 250-50 Diskus] 1 each IH BID #1 blst.w.dev Prednisone 10 mg PO ASDIR 10 Days #30 tablet 09/30/17 Ranitidine HCl [Zantac] 150 mg PO BID #30 tablet 09/30/17 Asthma: Yes COPD: No - Immunization History Immunization Up to Date: Yes - Suicide/Smoking/Psychosocial Hx Smoking History: Never smoked Have you smoked in the past 12 months: No Number of Cigarettes Smoked Daily: 2 Hx Alcohol Use: No Drug/Substance Use Hx: No Substance Use Type: None Review of Systems - Review of Systems Able to Perform ROS?: Yes Comments:: 02/09/18 03:37 General: admits to chills, generalized weakness, body aches. HEENT: admits to sore throat, rhinorrhea. denies ear pain. Heart: denies chest pain, palpitations, syncope, lower extremity swelling, diaphoresis. Respiratory: admits to shortness of breath, cough, sputum production. denies hemoptysis. Abdomen: nausea, vomiting, diarrhea. denies abdominal pain, constipation, blood in stool. : denies dysuria, increased urinary frequency, hematuria, urinary incontinence , flank pain. Back: denies back pain. Musculoskeletal: denies joint pain, muscle pain, joint swelling. Neurological: denies headache, dizziness, numbness, tingling, weakness. Skin: denies rash, laceration, abrasion. *Physical Exam - Physical Exam Comments: 02/09/18 03:38 Constitutional: Well-nourished, Well-developed, appearing stated age. HEENT: head is normocephalic, atraumatic. EOMI. PERRLA. oral mucosa moist. no posterior pharyngeal erythema, no tonsillar asymmetry, no tonsillar swelling, no tonsillar exudates. Neck: supple. Full ROM. right cervical lymphadenopathy, tender to palpation. Heart: regular rhythm. no murmurs, rubs or gallops. Lungs: diffuse wheezing to bilateral lung wilde. Abdomen: soft, nontender. normal bowel sounds. no rebound, guarding, masses. Extremities: Peripheral pulses intact. No lower extremity edema. Neurological: CN 2-12 grossly intact. Moves all four extremities. Psych: awake, alert, oriented x3. Follows commands. Answers questions appropriately. Medical Decision Making - Medical Decision Making 02/09/18 03:39 47 year old female with PMH asthma presenting to ED for chest tightness and wheezing x3 days unrelieved by her home Asthma meds. Wheezing on examination. No pharyngeal changes. Tender cervical lymphadenopathy present. Initial Vital Signs Temp Pulse Resp BP Pulse Ox 98.7 F 95 H 22 H 137/82 96 02/09/18 03:10 02/09/18 03:10 02/09/18 03:10 02/09/18 03:10 02/09/18 03:10 Afebrile. No tachycardia. Tachypenia, likely secondary to asthma. No hypoxia on room air. Concern for asthma exacerbation, wheezing on examination. - duoneb ordered - prednisone ordered - Pending CXR Concern for viral pharyngitis/gastroenteritis, sore throat, body aches, n/v/d, afebrile, see PE - tylenol ordered - Centor criteria = 1 - pending rapid strep - pending rapid flu 02/09/18 04:48 Rapid strep and influeza testing negative. Pt reassessed, states SOB is improved. Decreased wheezing heard on auscultation. 02/09/18 05:45 Pt reasssesed, states SOB is resolved. No wheezing heard on auscultation. CXR - no infiltration, sharp costophrenic angles, no sign of pneumothorax. Pt will be discharged with follow up instructions and strict return precautions. *DC/Admit/Observation/Transfer Diagnosis at time of Disposition: Asthma - Discharge Dispostion Disposition: HOME Condition at time of disposition: Fair Decision to Admit order: No - Referrals Referrals: Gayatri Bullock MD [Primary Care Provider] - - Patient Instructions Printed Discharge Instructions: Asthma -- Adult Additional Instructions: You were seen today for chest tightness and wheezing. Your strep test was negative. Your influenza test was negative. Your chest X-ray was normal. You likely have a viral infection that exacerbated your asthma. Take tylenol over the counter for body aches/fever. Drink lots of clear fluids, like water or gatorade, to stay hydrated. Return to the Emergency Department for shortness of breath, chest pain, fever not lowered by motrin/tylenol, ill-appearance, palpitations, passing out, or any other new, worsening or concerning symptoms. Follow up with your primary care doctor within 5 days, call their office saturday and make an appointment for next week. Tell them you were seen in the Emergency Department. Your care is not complete until you follow up. - Post Discharge Activity
[2018-02-09 03:24] VITALS: BP 137/82; PULSE 95; TEMP 98.7; BMI 29.2
--- NOTE | 2018-02-09 03:36 | PDOC ---
Attending Attestation - Resident Resident Name: Hillary Ibrahim - ED Attending Attestation I have performed the following: I have examined & evaluated the patient, The case was reviewed & discussed with the resident, I agree w/resident's findings & plan - HPI HPI: 02/09/18 05:53 Pt comes with nausea and vomiting. States that she had a viral URI and stomach virus and that her asthma has been triggered. She has a hx of asthma, but she ran out of meds. SHe has no fever. She took one of her prednisones today prior to coming to the ER. - Physicial Exam PE: 02/09/18 05:54 Agree with resident exam. Pt was wheezing bila on arrival\She is afebrile and appears well. - Medical Decision Making 02/09/18 05:55 After nebs, pt is vastly improved.
[2018-02-09] MEDS ORDERED: ACETAMINOPHEN 325 MG TABLET (FP) PO ONE (03:44)
[2018-02-09] MEDS: ALBUTEROL SO4 2.5/IPRATROPIUM 0.5 INH SOL 3 ML VIAL.NEB. NEB SCH ×4 (04:00→04:45)
[2018-02-09] MEDS ORDERED: ALBUTEROL SO4 2.5/IPRATROPIUM 0.5 INH SOL 3 ML VIAL.NEB. NEB ONE (04:02)
[2018-02-09] MEDS ORDERED: ACETAMINOPHEN 325 MG TABLET (FP) ONE (04:02)
[2018-02-09] MEDS ORDERED: predniSONE 20 MG TABLET (UD) PO ONE (04:51)
[2018-02-09] MEDS ORDERED: predniSONE 20 MG TABLET (UD) ONE (05:03)
== END 2018-02-09 06:28 | disposition home or self-care (01) ==
LOC: JER 03:07
PROC: 3E0F7GC Introduction of Other Therapeutic Substance into Respiratory Tract, Via Natural or Artificial Opening (ICD-10-PCS; principal; 2018-02-09)
DX: J45.909 Unspecified asthma, uncomplicated (principal)
CPT/HCPCS: 71045-TC-FY; 87070; 87430; 87804; 99281-25; 99284-25

== ENCOUNTER 2018-02-10 20:26 | Emergency (ER) | payer SELFPAY ==
--- NOTE | 2018-02-10 20:48 | PDOC ---
Rapid Medical Evaluation Time Seen by Provider: 02/10/18 20:46 Medical Evaluation: Allergies Allergy/AdvReac Type Severity Reaction Status Date / Time Penicillins Allergy Severe Hives Verified 02/09/18 03:24 egg Allergy Verified 02/09/18 03:24 latex Allergy Verified 02/09/18 03:24 dust Allergy Uncoded 02/09/18 03:24 I have performed a brief in-person evaluation of this patient. The patient presents with a chief complaint of: asthmatic. chest tightness Pertinent physical exam findings: expiratory wheezing in posterior wilde I have ordered the following: duoneb The patient will proceed to the ED for further evaluation Discharge Disposition - Diagnosis Asthma - Referrals Referrals: Gayatri Bullock MD [Primary Care Provider] - - Patient Instructions - Post Discharge Activity
[2018-02-10 20:50] VITALS: BP 103/62; PULSE 62; TEMP 98.9; BMI 26.7
[2018-02-10] MEDS ORDERED: ALBUTEROL SO4 2.5/IPRATROPIUM 0.5 INH SOL 3 ML VIAL.NEB. NEB ONE (21:29)
[2018-02-10] MEDS: ALBUTEROL SO4 2.5/IPRATROPIUM 0.5 INH SOL 3 ML VIAL.NEB. NEB SCH ×3 (21:33→22:09)
[2018-02-10] MEDS ORDERED: DEXAMETHASONE LIQUID 0.5 MG/5 ML 240 ML BULK BOTTLE PO ONE (21:50)
[2018-02-10] MEDS ORDERED: DEXAMETHASONE SOD PHOSPHATE 10 MG/1 ML VIAL ONE ×2 (22:01→22:06)
--- NOTE | 2018-02-10 22:07 | PDOC ---
History of Present Illness - General Chief Complaint: Asthma Stated Complaint: Asthma Time Seen by Provider: 02/10/18 20:46 - History of Present Illness Initial Comments: 47-year-old female with a past medical history significant for asthma presents for evaluation of asthma times one day. She has no other associated symptoms besides wheezing and mild shortness of breath. 02/10/18 22:05 Past History - Past Medical History Allergies/Adverse Reactions: Allergies Allergy/AdvReac Type Severity Reaction Status Date / Time Penicillins Allergy Severe Hives Verified 02/10/18 20:50 egg Allergy Verified 02/10/18 20:50 latex Allergy Verified 02/10/18 20:50 dust Allergy Uncoded 02/10/18 20:50 Home Medications: Ambulatory Orders Albuterol Sulfate Inhaler - [Ventolin HFA Inhaler -] 1 - 2 inh PO Q4H #1 inhaler 02/10/18 Asthma: Yes COPD: No - Immunization History Immunization Up to Date: Yes - Suicide/Smoking/Psychosocial Hx Smoking History: Current some day smoker Have you smoked in the past 12 months: No Number of Cigarettes Smoked Daily: 2 Information on smoking cessation initiated: No Hx Alcohol Use: No Drug/Substance Use Hx: No Substance Use Type: None Review of Systems - Review of Systems Respiratory: Yes: Shortness of Breath, Wheezing All Other Systems: Reviewed and Negative *Physical Exam - Vital Signs Last Vital Signs Temp Pulse Resp BP Pulse Ox 98.9 F 62 18 103/62 99 02/10/18 20:46 02/10/18 20:46 02/10/18 20:46 02/10/18 20:46 02/10/18 20:46 - Physical Exam Comments: HEAD: NC/AT EYES: Conjuntiva clear Ears: Canals and TM's normal NOSE: No d/c THROAT: Moist mucous membrances, oral pharanx clear, uvula midline NECK: Supple without adenopathy CARDIAC: S1 S2 LUNGS: CTA Full and Equal breath sounds ABDOMEN: Soft NT ND MS: Full ROM in all joints without edema NEUROLOGIC: No gross sensory or motor deficits, NVID SKIN: Normal color and temperature no lesions or rashes 02/10/18 22:06 ED Treatment Course - Medications Given in the ED: ED Medications Discontinued Medications Generic Name Dose Route Start Last Admin Trade Name Freq PRN Reason Stop Dose Admin Albuterol/Ipratropium 1 amp 02/10/18 21:00 02/10/18 22:04 Duoneb - NEB 02/10/18 21:46 1 amp Q15M JORDAN Administration Medical Decision Making - Medical Decision Making Patient seen and evaluated after the second DuoNeb treatment she has no wheezing and is feeling markedly better 02/10/18 22:06 *DC/Admit/Observation/Transfer Diagnosis at time of Disposition: Asthma - Discharge Dispostion Disposition: HOME Condition at time of disposition: Improved Decision to Admit order: No - Prescriptions Prescriptions: Albuterol Sulfate Inhaler - [Ventolin HFA Inhaler -] 1 - 2 inh PO Q4H #1 inhaler - Referrals Referrals: Gayatri Bullock MD [Primary Care Provider] - - Patient Instructions Printed Discharge Instructions: Asthma -- Adult Additional Instructions: Return to the emergency room should symptoms worsen or go unresolved. Please take the inhaler as directed. Follow-up with your primary care physician once 2 days for further evaluation and treatment options. - Post Discharge Activity
== END 2018-02-10 22:09 | disposition home or self-care (01) ==
LOC: JERFT 20:26
DX: J45.909 Unspecified asthma, uncomplicated (principal)
CPT/HCPCS: 99281-25; J7620

== ENCOUNTER 2018-03-18 22:52 | Emergency (ER) | payer OTHER ==
[2018-03-18 22:56] VITALS: TEMP 98.6; BMI 30.1
--- NOTE | 2018-03-19 00:14 | PDOC ---
History of Present Illness - General Chief Complaint: Asthma Stated Complaint: ASTHMA Time Seen by Provider: 03/19/18 00:13 History Source: Patient - History of Present Illness Initial Comments: 03/19/18 00:35 The patient is a 47 year old female with a PMH of Asthma (multiple hospitalizations, no intubations) presents to our ED c/o cough, shortness of breath. Patient states she has been coughing (intermittently productive of yellowish sputum) for 2 days and today she became short of breath prompting her visit to the ED. H/o subjective fever, sore throat and rhinnorhea last week. Three nebulizer treatment and inhaler @ home today. ROS is positive for NB diarrhea two days previous. The patient denies chest pain, abdominal pain, nausea/vomiting, constipation, dysuria/hematuria. Allergy: Penicillin (rash) Surgical: Gastric Bypass, Carpal tunnel repair Social: denies toxic habits PMD: Dr. Gayatri Bullock As per EMR, patient evaluated in our ED 02/10/18 for asthma exacerbation. Improved post Duo Neb and d/c home. 03/19/18 00:39 Past History - Past Medical History Allergies/Adverse Reactions: Allergies Allergy/AdvReac Type Severity Reaction Status Date / Time Penicillins Allergy Severe Hives Verified 03/18/18 22:56 egg Allergy Verified 03/18/18 22:56 latex Allergy Verified 03/18/18 22:56 dust Allergy Uncoded 03/18/18 22:56 Home Medications: Ambulatory Orders Albuterol Sulfate Inhaler - [Ventolin HFA Inhaler -] 1 - 2 inh PO Q4H #1 inhaler 02/10/18 Prednisone [Prednisone 50 MG TABLETS] 50 mg PO DAILY #4 tablet 03/19/18 Asthma: Yes COPD: No - Immunization History Immunization Up to Date: Yes - Suicide/Smoking/Psychosocial Hx Smoking History: Current some day smoker Have you smoked in the past 12 months: No Number of Cigarettes Smoked Daily: 2 Information on smoking cessation initiated: No Hx Alcohol Use: No Drug/Substance Use Hx: No Substance Use Type: None Review of Systems - Review of Systems Constitutional: Yes: Fever Respiratory: Yes: Shortness of Breath, Productive cough Cardiac (ROS): No: Chest Pain, Lightheadedness, Palpitations, Syncope ABD/GI: No: Constipated, Diarrhea, Nausea, Vomiting : No: Burning, Dysuria *Physical Exam - Vital Signs Last Vital Signs Temp Pulse Resp BP Pulse Ox 98.6 F 86 18 116/60 97 03/18/18 22:53 03/18/18 22:53 03/18/18 22:53 03/18/18 22:53 03/18/18 22:53 - Physical Exam General Appearance: Yes: Nourished, Appropriately Dressed HEENT: positive: Normal Voice, Hearing Grossly Normal Neck: positive: Trachea midline, Supple Respiratory/Chest: positive: Wheezing (diffuse wheezing in posterior lung wilde ). negative: Labored Respiration, Rapid RR, Crackles Cardiovascular: positive: S1, S2 Gastrointestinal/Abdominal: positive: Normal Bowel Sounds, Soft. negative: Distended, Guarding, Tenderness, Hernia Musculoskeletal: negative: CVA Tenderness (R), CVA Tenderness (L) Extremity: positive: Normal Capillary Refill, Normal Inspection Integumentary: positive: Normal Color, Dry, Warm Neurologic: positive: Fully Oriented, Alert ED Treatment Course - LABORATORY CBC & Chemistry Diagram: 03/19/18 05:22 03/19/18 05:22 Medical Decision Making - Medical Decision Making 03/19/18 00:39 47 year old female with subjective dyspnea, cough. Diffuse mild wheezing on PE , mild pharyngeal erythema. DDx includes Asthma exacerbation, Strep Throat, PNA. Will give Duo Nebs, Steroids, Mg. CXR +Rapid Strep. IV hydration. Reassess. 03/19/18 02:39 Strep Negative Given patient's h/o asthma, clinical presentation, will swab for Influenza as patient still candidate for treatment b/c of comorbidity. 03/19/18 02:47 CXR shows clear costophrenic angles, no infiltrate/consolidation, no cardiomegaly Influenza negative 03/19/18 04:20 Patient remains diffusely wheezing. Albuterol treatment and reassess. 03/19/18 05:31 Multiple attempts for IV access. Security Operations Specialist paged. 03/19/18 05:45 Labs pending Patient remains wheezy; additional Albuterol treatments. ED OBS 03/19/18 05:58 Leukocytosis 14.3 03/19/18 06:19 K+3.1 - likely 2/2 to Albuterol treatment. Patient currently receiving Albuterol treatments, will reassess. 03/19/18 06:31 S/p Albuterol, less appreciable wheezing on PE, requesting d/c. Will give patient 4 day prescription for Prednisone, return precautions and PMD follow-up. I discussed the physical exam findings, ancillary test results and final diagnoses with the patient. I answered all of the patient's questions. The patient was satisfied with the care received and felt comfortable with the discharge plan and treatment plan. The patient will return to the Emergency Department with any new, persistent or worsening symptoms. *DC/Admit/Observation/Transfer Diagnosis at time of Disposition: Asthma exacerbation - Discharge Dispostion Disposition: HOME Condition at time of disposition: Fair Decision to Admit order: No - Prescriptions Prescriptions: Prednisone [Prednisone 50 MG TABLETS] 50 mg PO DAILY #4 tablet - Referrals Referrals: Gayatri Bullock MD [Primary Care Provider] - - Patient Instructions Printed Discharge Instructions: Asthma -- Adult Additional Instructions: We have sent a prescription for steroids to your pharmacy. Please take the medication as prescribed. Please make an appointment for evaluation by your primary care provider in the next 3 days. Return to the Emergency Department for any new/worsening/concerning symptoms. - Post Discharge Activity
[2018-03-19] MEDS ORDERED: ALBUTEROL SO4 2.5/IPRATROPIUM 0.5 INH SOL 3 ML VIAL.NEB. NEB ONE ×2 (00:31→01:49)
[2018-03-19] MEDS ORDERED: MAGNESIUM SULF 50% (8.12 MEQ/2 ML-1 GM VIAL) IVPB ONE (00:32)
[2018-03-19] MEDS ORDERED: SODIUM CHLORIDE 0.9% 500 ML INFUS.BAG IV ONE (00:33)
[2018-03-19] MEDS ORDERED: MAGNESIUM 1GM/D5W - 1 GM/100 ML IVPB IVPB ONE (01:49)
[2018-03-19] MEDS ORDERED: predniSONE 20 MG TABLET (UD) PO ONE (02:01)
--- NOTE | 2018-03-19 03:31 | PDOC ---
Attending Attestation - Resident Resident Name: Mercedez Herr - ED Attending Attestation I have performed the following: I have examined & evaluated the patient, The case was reviewed & discussed with the resident, I agree w/resident's findings & plan, Exceptions are as noted - HPI HPI: 03/19/18 06:35 The patient is a 47 year old female, with a significant past medical history of asthma (multiple hospitalizations, no intubations), who presents to the emergency department with, shortness of breath and productive cough with yellow sputum. Patient notes taking 3 nebulizer treatments and using her rescue inhaler multiple times, with minimal relief. Patient endorses subjective fevers and URI symptoms last week. Her last course of Prednisone was a month ago. States this feels like her asthma. She denies recent headache or dizziness. She denies recent nausea, vomit, diarrhea or constipation. She denies recent dysuria, frequency, urgency or hematuria. She denies recent chest pain. Allergies: Penicillins, eggs, latex, dust Primary Care Physician: Dr. Gayatri Bullock - Physicial Exam PE: 03/19/18 03:36 GENERAL: Awake, alert, and fully oriented, in no acute distress HEAD: No signs of trauma EYES: Sclera anicteric, conjunctiva clear ENT: Oropharynx clear without exudates. Moist mucosa NECK: Normal ROM, supple, no lymphadenopathy, JVD, or masses LUNGS: Diffuse bilateral expiratory wheezing. Moderate air movement No crackles HEART: Regular rate and rhythm, normal S1 and S2, no murmurs, rubs or gallops ABDOMEN: Soft, nontender, normoactive bowel sounds. No guarding, no rebound. No masses EXTREMITIES: Normal range of motion, no edema. No clubbing or cyanosis. No cords , erythema, or tenderness BACK: No midline spinal tenderness in cervical/thoracic/lumbar region NEUROLOGICAL: Normal speech, cranial nerves intact,5/5 strength in all 4 extremities, normal sensation to light touch in all 4 extremities, normal gait SKIN: Warm, Dry, normal turgor, no rashes or lesions noted. - Medical Decision Making 03/19/18 06:37 47yo F hx asthma presents to the ED with SOB, cough, uri symptoms. Exam with wheezing consistent with asthma exacerbation. No crackles, hypoxia. CXR with no evidence of pneumonia on my read. Labs with leukocytosis to 14 which is possibly reactive or due to prednisone as labs were drawn hours after pt got prednisone (pt very tough stick). Pt was placed on ED obs due to delays in obtaining labs and for persistent wheezing which has now improved. Pt feeling much better after multiple rounds of nebs and dose of prednisone. Lungs with minimal wheezing, good air movement. Pt clinically well appearing, ambulating with out resp distress. Requests DC home. WIll DC with steroids and pt to f/u with PMD in 1-2 days. I discussed the physical exam findings, ancillary test results and final diagnoses with the patient. I answered all of the patient's questions. The patient was satisfied with the care received and felt comfortable with the discharge plan and treatment plan. The patient will call their primary care physician within 24 hours to arrange follow-up and will return to the Emergency Department with any new, persistent or worsening symptoms.
[2018-03-19] MEDS ORDERED: ALBUTEROL SO4 0.5 % INH SOLN 2.5 MG/0.5 ML VIAL.NEB. NEB ONE (03:34)
[2018-03-19] MEDS ORDERED: ALBUTEROL SO4 0.083% IH SOL 2.5 MG/3 ML VIAL.NEB. NEB ONE ×3 (03:41→05:57)
[2018-03-19] MEDS ORDERED: predniSONE 10 MG TABLET (UD) ONE (03:58)
[2018-03-19] MEDS ORDERED: predniSONE 20 MG TABLET (UD) ONE (03:58)
[2018-03-19 05:22] VITALS: BP 118/62; PULSE 82
[2018-03-19 05:57] LABS: BASO % 0.3 % (0-2.0); EOS % 2.3 % (0-4.5); HEMATOCRIT 35.2 % (32.4-45.2); HEMOGLOBIN 11.5 GM/dL (10.7-15.3); LYMPH % 12.4 % (8-40); MCH 30.3 pg (25.7-33.7); MCHC 32.7 g/dl (32.0-36.0); MEAN CELL VOLUME 92.7 fl (80-96); MEAN PLT VOLUME 8.5 fl (7.5-11.1); MONO % 4.3 % (3.8-10.2); NEUT % 80.7 % (42.8-82.8); RDW 13.6 % (11.6-15.6); WHITE BLOOD COUNT 14.3 K/mm3 (4.0-10.0)
[2018-03-19 06:14] LABS: ALBUMIN 3.3 g/dl (3.4-5.0); ALK PHOS 89 U/L (45-117); ANION GAP 7 MMOL/L (8-16); BILIRUBIN,TOTAL 0.3 mg/dL (0.2-1); BLOOD UREA NITROGEN 7 mg/dL (7-18); CALCIUM 8.5 mg/dL (8.5-10.1); CHLORIDE 109 mmol/L (98-107); CO2 27 mmol/L (21-32); CREATININE 0.7 mg/dL (0.55-1.3); GLUCOSE,RANDOM 128 mg/dL (74-106); POTASSIUM 3.2 mmol/L (3.5-5.1); SGOT/AST 20 U/L (15-37); SGPT/ALT 15 U/L (13-61); SODIUM 143 mmol/L (136-145); TOT PROT 6.6 g/dl (6.4-8.2)
[2018-03-19 06:37] LABS: PLATELET ESTIMATE NORMAL
== END 2018-03-19 06:58 | disposition home or self-care (01) ==
LOC: JER 22:52
PROC: 3E0F7GC Introduction of Other Therapeutic Substance into Respiratory Tract, Via Natural or Artificial Opening (ICD-10-PCS; principal; 2018-03-18)
PROC: 3E0F7GC Introduction of Other Therapeutic Substance into Respiratory Tract, Via Natural or Artificial Opening (ICD-10-PCS; 2018-03-18)
PROC: 3E0F7GC Introduction of Other Therapeutic Substance into Respiratory Tract, Via Natural or Artificial Opening (ICD-10-PCS; 2018-03-18)
DX: J45.901 Unspecified asthma with (acute) exacerbation (principal)
CPT/HCPCS: 36415; 71045-TC-FY; 80053; 84703; 85025; 87070; 87430; 87804; 99281-25

== ENCOUNTER 2019-04-16 11:39 | Emergency (ER) | payer OTHER ==
[2019-04-16 11:59] VITALS: BP 102/57; PULSE 71; TEMP 98.4; BMI 34.0
[2019-04-16] MEDS ORDERED: ALBUTEROL SO4 2.5/IPRATROPIUM 0.5 INH SOL 3 ML VIAL.NEB. NEB ONE ×3 (12:52→12:55)
[2019-04-16] MEDS ORDERED: predniSONE 20 MG TABLET (UD) ONE ×2 (12:55→12:59)
[2019-04-16] MEDS ORDERED: predniSONE 20 MG TABLET (UD) PO SCH (13:00)
--- NOTE | 2019-04-16 13:40 | PDOC ---
History of Present Illness - General Chief Complaint: Cold Symptoms Stated Complaint: ASTHMA/ COLD Time Seen by Provider: 04/16/19 12:20 History Source: Patient Exam Limitations: No Limitations - History of Present Illness Initial Comments: 04/16/19 13:35 48-year-old female with history of asthma denies history of intubation presents complaining of dry cough, wheezing, subjective fever, chills for 2 days. Arrived 3 days ago from 6-day cruise to the [facility]. Denies chest pain, shortness of breath, abdominal pain, neck pain, leg swelling or any other complaints. Patient reports the symptoms are typical of her asthma exacerbation. She used her albuterol MDI this morning 2 puffs without relief of symptoms. ROS: GENERAL/CONSTITUTIONAL: Subjective fever, chills HEAD, EYES, EARS, NOSE AND THROAT: No changes in vision, No ear pain or discharge, No sore throat CARDIOVASCULAR: No chest pain RESPIRATORY: Cough, no shortness of breath GASTROINTESTINAL: No pain, nausea, vomiting, diarrhea or constipation GENITOURINARY: No dysuria MUSCULOSKELETAL: No neck or back pain SKIN: No rash NEUROLOGIC: No headache, vertigo, loss of consciousness, or loss of sensation PE: GENERAL: well-appearing, NAD, speaking full sentences HEAD: NCAT EYES: Pupils equal, round and reactive to light, sclera anicteric, conjunctiva clear ENT: pharynx: no erythema, no exudate, uvula midline NECK: supple CHEST: nontender RESP: Wheezing throughout lung wilde CARDIO: rrr, no m/g/r ABD: +BS, soft, nontender, non distended BACK: no midline spinal ttp, no CVAT EXTREMITIES: Normal range of motion, no edema NEUROLOGICAL: Normal speech, normal gait SKIN: Warm, Dry Is this a multiple visit Asthma Patient?: No Past History - Past Medical History Allergies/Adverse Reactions: Allergies Allergy/AdvReac Type Severity Reaction Status Date / Time Penicillins Allergy Severe Hives Verified 04/16/19 11:54 egg Allergy Verified 04/16/19 11:54 latex Allergy Verified 04/16/19 11:54 dust Allergy Uncoded 04/16/19 11:54 Home Medications: Ambulatory Orders Albuterol Sulfate Inhaler - [Ventolin HFA Inhaler -] 1 - 2 inh PO Q4H #1 inhaler 02/10/18 Prednisone [Prednisone 50 MG TABLETS] 50 mg PO DAILY #4 tablet 03/19/18 Asthma: Yes COPD: No - Immunization History Immunization Up to Date: Yes - Psycho Social/Smoking Cessation Hx Smoking History: Never smoked Have you smoked in the past 12 months: No Number of Cigarettes Smoked Daily: 2 Hx Alcohol Use: No Drug/Substance Use Hx: No Substance Use Type: None *Physical Exam - Vital Signs Last Vital Signs Temp Pulse Resp BP Pulse Ox 98.4 F 71 18 102/57 L 100 04/16/19 11:54 04/16/19 11:54 04/16/19 11:54 04/16/19 11:54 04/16/19 11:54 ED Treatment Course - Medications Given in the ED: ED Medications Discontinued Medications Generic Name Dose Route Start Last Admin Trade Name Ashley PRN Reason Stop Dose Admin Albuterol/Ipratropium 1 amp 04/16/19 12:52 04/16/19 13:00 Duoneb - NEB 04/16/19 12:53 1 amp ONCE ONE Administration Albuterol/Ipratropium 1 amp 04/16/19 12:53 04/16/19 13:00 Duoneb - NEB 04/16/19 12:54 1 amp ONCE ONE Administration Medical Decision Making - Medical Decision Making 04/16/19 13:38 48-year-old female presents with cough, wheezing, subjective fever and chills x2 days. 14:40 Patient feels better after 2 neb treatments and p.o. prednisone Lungs clear to auscultation Will discharge with return precautions Discharge - Discharge Information Problems reviewed: Yes Clinical Impression/Diagnosis: Asthma exacerbation Qualifiers: Asthma severity: mild Asthma persistence: unspecified Qualified Code(s): J45.901 - Unspecified asthma with (acute) exacerbation Condition: Stable Disposition: HOME - Admission No - Follow up/Referral - Patient Discharge Instructions Additional Instructions: Use albuterol MDI 1 to 2 puffs every 4-6 hours as needed Take prednisone 40 mg daily x4 days If worsening cough, shortness of breath, difficulty breathing or worsening symptoms return to the ED immediately Aloe up with your doctor within 1 week - Post Discharge Activity
== END 2019-04-16 14:54 | disposition home or self-care (01) ==
LOC: JERFT 11:39
PROC: 3E0F7GC Introduction of Other Therapeutic Substance into Respiratory Tract, Via Natural or Artificial Opening (ICD-10-PCS; principal; 2019-04-16)
DX: J45.901 Unspecified asthma with (acute) exacerbation (principal)
CPT/HCPCS: 99281-25

== ENCOUNTER 2023-05-14 04:26 | Day surgery (SDC) | payer OTHER ==
[2023-05-10 11:37] VITALS: BMI 32.2
[2023-05-14 12:04] VITALS: TEMP 97.3
[2023-05-14 12:33] VITALS: BP 113/97; PULSE 68; RESP 18
== END 2023-05-14 12:35 | disposition home or self-care (01) ==
LOC: JASU-ENDO 04:26
PROVIDERS: ATTEND Internal Medicine Gastroenterology
PROC: 0DB78ZX Excision of Stomach, Pylorus, Via Natural or Artificial Opening Endoscopic, Diagnostic (ICD-10-PCS; 2023-05-14)
PROC: 0DJ08ZZ Inspection of Upper Intestinal Tract, Via Natural or Artificial Opening Endoscopic (ICD-10-PCS; 2023-05-14)
PROC: 0DJ08ZZ Inspection of Upper Intestinal Tract, Via Natural or Artificial Opening Endoscopic (ICD-10-PCS; 2023-05-14)
PROC: 0DB68ZX Excision of Stomach, Via Natural or Artificial Opening Endoscopic, Diagnostic (ICD-10-PCS; principal; 2023-05-14 10:45)
DX: K29.50 Unspecified chronic gastritis without bleeding (principal); K44.9 Diaphragmatic hernia without obstruction or gangrene; Z98.84 Bariatric surgery status; Z98.0 Intestinal bypass and anastomosis status
CPT/HCPCS: 88305-TC; 88342-TC

== ENCOUNTER 2023-06-04 09:00 | Day surgery (SDC) | payer OTHER ==
[~2023-06-04 09:00] MED LIST: ACETAMINOPHEN 500 MG TABLET (FP) PO PRN
[2023-06-04 09:21] VITALS: PULSE 68; RESP 20; TEMP 97.7; BMI 31.2
[2023-06-04] MEDS ORDERED: LIDOCAINE HCL 1% PRESERVATIVE FREE - 30ML VIAL IJ ONE (10:02)
[2023-06-04] MEDS ORDERED: BUPIVACAINE HCL/PF 0.75% 10 ML VIAL NR ONE (10:03)
[2023-06-04 10:28] VITALS: BP 106/58
[2023-06-04] MEDS ORDERED: ACETAMINOPHEN 500 MG TABLET (FP) PO PRN (11:26)
== END 2023-06-04 11:17 | disposition home or self-care (01) ==
LOC: JASU-SURG 09:00
PROVIDERS: ATTEND Pain Medicine Pain Medicine
PROC: 3E0T33Z Introduction of Anti-inflammatory into Peripheral Nerves and Plexi, Percutaneous Approach (ICD-10-PCS; 2023-06-04)
PROC: 3E0T3BZ Introduction of Anesthetic Agent into Peripheral Nerves and Plexi, Percutaneous Approach (ICD-10-PCS; principal; 2023-06-04 10:00)
DX: M47.816 Spondylosis without myelopathy or radiculopathy, lumbar region (principal)
CPT/HCPCS: 76000-TC-FY

== ENCOUNTER 2023-07-25 04:21 | Day surgery (SDC) | payer OTHER ==
[2023-07-23 11:52] VITALS: BMI 30.9
[2023-07-25 10:30] VITALS: TEMP 98
[2023-07-25 10:57] VITALS: BP 108/56; PULSE 65; RESP 18
== END 2023-07-25 10:59 | disposition home or self-care (01) ==
LOC: JASU-ENDO 04:21
PROVIDERS: ATTEND Internal Medicine Gastroenterology
PROC: 0DJD8ZZ Inspection of Lower Intestinal Tract, Via Natural or Artificial Opening Endoscopic (ICD-10-PCS; principal; 2023-07-25 10:00)
DX: Z12.11 Encounter for screening for malignant neoplasm of colon (principal); D12.8 Benign neoplasm of rectum; K64.8 Other hemorrhoids; R10.84 Generalized abdominal pain
CPT/HCPCS: 88305-TC

== ENCOUNTER 2023-08-31 23:23 | Emergency (ER) | payer OTHER ==
[2023-08-31 23:32] VITALS: BP 133/58; PULSE 70; RESP 18; TEMP 98
[2023-09-01] MEDS ORDERED: metroNIDAZOLE 250 MG TABLET ONE (00:08)
[2023-09-01] MEDS: metroNIDAZOLE 250 MG TABLET PO ONE (00:10)
[2023-09-01] MEDS ORDERED: DEXAMETHASONE SOD PHOSPHATE 10 MG/1 ML VIAL ONE (01:30)
[2023-09-01] MEDS: DEXAMETHASONE SOD PHOSPHATE 4 MG/1 ML VIAL IM ONE (01:38)
== END 2023-09-01 02:09 | disposition short-term general hospital (02) ==
LOC: JER 23:23
PROC: 3E023GC Introduction of Other Therapeutic Substance into Muscle, Percutaneous Approach (ICD-10-PCS; principal; 2023-09-01)
DX: R22.0 Localized swelling, mass and lump, head (principal); K04.7 Periapical abscess without sinus; R51.9 Headache, unspecified
CPT/HCPCS: 70486-TC; 99285-25

== ENCOUNTER 2024-03-07 08:38 | Emergency (ER) | payer OTHER ==
[2024-03-07 08:55] VITALS: BP 105/68; PULSE 87; RESP 18; TEMP 98.2; BMI 23.0
[2024-03-07] MEDS ORDERED: ACETAMINOPHEN 500 MG TABLET (FP) ONE (09:37)
[2024-03-07] MEDS: ACETAMINOPHEN 500 MG TABLET (FP) PO ONE (09:44)
== END 2024-03-07 09:45 | disposition home or self-care (01) ==
LOC: JERFT 08:38
DX: R21 Rash and other nonspecific skin eruption (principal); L30.9 Dermatitis, unspecified
CPT/HCPCS: 99283-25